=== PATIENT | male | born 1940 | race Caucasian/White ===

== ENCOUNTER → 2018-01-24 13:00 | Outpatient (CLI) | payer MEDICARE, SELFPAY ==
--- NOTE | 2018-01-24 13:02 | ECHOCS_ITS ---
Reason For Study: CAD/ASHD Procedure This was a 2D Doppler, Color Flow transthoracic echocardiogram. The exam was of poor technical quality due to body habitus. The study was technically difficult. Contrast injection was performed. Left Ventricle Normal LV size. Mild concentric left ventricular hypertrophy. Left ventricular systolic function is normal. The estimated ejection fraction is 65 %. There is evidence of diastolic dysfunction. No regional wall motion abnormalities noted. Right Ventricle Normal RV size. Normal systolic function. Atria The left atrium is mildly enlarged. Normal right atrium. No doppler evidence for ASD. Mitral Valve There is no mitral annular calcification. Normal mitral valve. Trivial mitral valve insufficiency. Tricuspid Valve Normal tricuspid valve. Trivial tricuspid valve insufficiency. Right ventricular systolic pressure estimated to be 26 mmHg. Aortic Valve The aortic valve is not well visualized. Trivial aortic valve insufficiency. Pulmonic Valve The pulmonic valve is not well visualized. Great Vessels Normal sized aortic root. Pericardium/Pleural No pericardial effusion. Medication 22 gauge I.V. with prn adaptor inserted into right arm. Diluted definity 2.0ml given slow IV push to enhance endocardial definition. MMode/2D Measurements & Calculations LVIDd: 4.2 cm IVSd: 1.4 cm Ao root diam: 3.0 cm LVIDs: 3.1 cm LVPWd: 1.3 cm LA dimension: 4.3 cm FS: 26.1 % LAV(MOD-bp): 55.5 ml LA A4 area: 20.7 cm2 RA A4 area: 20.0 cm2 LAV(MOD-bp) Indexed: 23.0 ml/m2 LAV(MOD-sp2): 55.0 ml LAV(MOD-sp4): 51.4 ml Doppler Measurements & Calculations MV E max alfonso: 56.1 cm/sec Lat Peak E' Alfonso: 12.0 cm/sec Med Peak E' Alfonso: 7.9 cm/sec MV A max alfonso: 70.6 cm/sec E/E' lat: 4.7 E/E' med: 7.1 MV E/A: 0.79 Ao V2 max: 156.5 cm/sec LV V1 max: 103.5 cm/sec PA V2 max: 90.8 cm/sec Ao max P.8 mmHg LV V1 max P.3 mmHg TR max alfonso: 240.7 cm/sec TR max P.2 mmHg Interpretation Summary The study was technically difficult. Contrast injection was performed. Left ventricular systolic function is normal. The estimated ejection fraction is 65 %. Mild concentric left ventricular hypertrophy. The left atrium is mildly enlarged. Trivial mitral valve insufficiency. Trivial tricuspid valve insufficiency. Trivial aortic valve insufficiency. Right ventricular systolic pressure estimated to be 26 mmHg. There is evidence of diastolic dysfunction. Ordering Physician: Isaac Mcwilliams Referring Physician: Isaac Mcwilliams Performed By: Jennifer Barron RDCS, RVT
== END ==
PROVIDERS: Family Provider Nurse Practitioner; PCP Nurse Practitioner; Visit Provider Internal Medicine Cardiovascular Disease
DX: I47.2 Ventricular tachycardia (principal); I47.1 Supraventricular tachycardia; I25.10 Atherosclerotic heart disease of native coronary artery without angina pectoris; Z95.5 Presence of coronary angioplasty implant and graft; Z95.1 Presence of aortocoronary bypass graft
CPT/HCPCS: 93306; Q9957; A4216; C8929

== ENCOUNTER 2018-10-30 06:51 | Observation (INO) | payer MEDICARE, SELFPAY ==
[2018-10-30] VITALS (11 sets, daily range): BP systolic 124–166; BP diastolic 73–89; PULSE 51–88; RESP 14–19; TEMP 36.3–37.1; O2SAT 93–97; BMI 34.5; BMI 33.0
--- NOTE | 2018-10-30 07:08 | RAD_ITS ---
STUDY: X-RAY CHEST REASON FOR EXAM: Male, 78 years old. Chest pain. TECHNIQUE: Single AP portable view of the chest. COMPARISON: Prior comparison studies are not available for review at this time. FINDINGS: monitoring engineer leads are present. Patient has had a sternotomy. Lungs are expanded. There is mild elevation and eventration of right hemidiaphragm. There is mild interstitial thickening present in both lungs. There is no demonstrated pleural abnormality. There is mild cardiac enlargement. Normal mediastinum and taz. Normal visualized pulmonary arteries. There is atherosclerotic calcification of the aortic arch with tortuosity. There is demineralization of the osseous structures. There are degenerative changes of both shoulders. There is no demonstrated abnormality of the visualized soft tissue structures of the upper abdomen. RAD/Chest 1 View (Portable) IMPRESSION: Cardiomegaly and mild pulmonary congestion. Electronically Signed: Darby Canada MD at 7:48 EST , Service support ,
--- NOTE | 2018-10-30 07:08 | EKG12_ITS ---
Test Reason : CP Blood Pressure : / mmHG Vent. Rate : 061 BPM Atrial Rate : 061 BPM P-R Int : 212 ms QRS Dur : 096 ms QT Int : 424 ms P-R-T Axes : 032 -10 066 degrees QTc Int : 426 ms Sinus rhythm with 1st degree A-V block with Premature supraventricular complexes Minimal voltage criteria for LVH, may be normal variant Nonspecific ST and T wave abnormality Abnormal ECG Confirmed by KEL LUND, YESI ([id number]), technical editor HASMUKH GUAJARDO ([id number]) on 11/01/2018 9:52:57 AM Referred By: KELVIN Confirmed By:YESI BEGUM MD
--- NOTE | 2018-10-30 07:14 | ED.DCSUM_ITS ---
- ER Visit Summary Date of Service: 10/30/18 Chief Complaint: Chest pain History of Present Illness: The patient is a 78 M presenting with chest pain. Patient states he has had intermittent pain over the past week. This has progressively worsened. He states he had an episode where he walked approximately 300 yards and began having chest pain. He needed to sit down. He denies shortness of breath, diaphoresis, nausea. He has a history of coronary disease, diabetes, hypertension. He had a CABG in 2006. He is a previous smoker. Denies PE/DVT risk factors. Physical Examination: Vitals are stable. Patient is afebrile. Alert no acute distress. HEENT exam is unremarkable. Neck is supple. Lungs are clear and equal bilaterally. Heart is regular rate and rhythm. Abdomen is soft nontender nondistended. Extremities are unremarkable. Skin is warm and dry. No focal neurologic deficit. Remainder of exam is unremarkable. Emergency Department Course and Treatment: Patient was given aspirin on arrival. EKG is sinus rate of 61. Chest xray shows cardiomegaly and mild pulmonary congestion. CBC unremarkable. Chemistries show BUN 23, creatinine 1.36. Troponin is negative. On reevaluation, patient is chest pain-free. Will discuss with the hospitalist for observation. Disposition: Observation Impression: Chest pain This note was generated with [employer] dictation software. It may contain incorrect words, spelling, and punctuation that were not noted in review of the chart prior to signing ED Disposition - Plan for ED Patient: Referrals: Palak Cuellar, CAROLYNE-C [Primary Care Provider] -
[2018-10-30] MEDS: Aspirin 81 MG TAB.CHEW 324 MG PO (07:28)
[2018-10-30 07:43] LABS: Absolute Lymphocyte Count 1.42 X10^3/ul (0.83-4.51); Absolute Neutrophil Count 3.2 X10^3/uL (2.0-7.7); Basophil# 0.04 X10^3/uL; Basophil% 0.7 % (0-1); Eosinophil# 0.27 X10^3/uL; Eosinophils% 4.8 % (0-5); Hemoglobin 14.8 g/dl (13.0-16.5); Lymphocyte # 1.42 X10^3/ul (4.0); Mean Corp Hgb Conc 32.9 g/gl (32-36); Mean Corpuscular Hgb 30.3 pg (27.0-32.0); Mean Platelet Vol. 10.8 fl (6.2-12.0); Monocyte# 0.76 X10^3/uL; Monocyte% 13.4 % (0-10); Neutrophil # 3.15 X10^3/uL (2.7-7.7); Neutrophil % 55.6 % (47-70); Platelet Count 202 K/mm3 (150-450); RBC Distribution Width CV 12.8 % (11.6-14.6); RBC Distribution Width SD 42.9 fl (35.1-43.9); Red Blood Count 4.89 M/mm3 (4.6-6.2); White Blood Count 5.7 K/mm3 (4.4-11.0)
[2018-10-30 07:44] LABS: POSITIVE COUNT NO; POSITIVE DIFFERENTIAL NO; POSITIVE MORPHOLOGY NO
[2018-10-30 07:55] LABS: Anion Gap 10 (5-15); BUN 23 mg/dL (7-18); BUN/Creat Ratio 16.9 RATIO (10-20); Chloride 106 mmol/L (98-107); Creatinine, Serum 1.36 mg/dL (0.70-1.30); EST Glomerular Filtration Rate 54 mL/min (>60); Est Glom Filt Rate - Afr Amer 65 mL/min (>60); Estimated Creatinine Clearance 52.89 ml/min; Glucose 90 mg/dL (74-106); Potassium 3.9 mmol/L (3.5-5.1); Sodium Level 142 mmol/L (136-145)
--- NOTE | 2018-10-30 08:11 | NURSING ---
DR VICENTE LIMA
--- NOTE | 2018-10-30 08:13 | HP.PCM_ITS ---
History of Present Illness Date of Admission: 10/30/18 Chief Complaint: chest pain The patient is a 78 year old M with an extensive past medical history as listed which includes CAD status post CABG x5. He was admitted with a complaint of chest pain which started about 3 days ago. Patient states he was up at the [facility] with his as his was been started on Tikosyn for A. fib. While she was there, he walked 2 by something and noticed that he had a feeling of chest discomfort. He rated it about 2 out of 10. He did not think much of it. However this morning, chest pain recurred and was retrosternal, exacerbated by exertion or relieved by rest. It was also rated at about 2 out of 10. He denied any assisted radiation to his left arm, any lightheadedness or dizziness or increased diaphoresis. Patient states he has had a stress test in a very long time and so he decided to come into the ED for assessment. Vitals were stable and initial troponin was negative. He has been admitted to be managed for chest pain to rule out ACS. Past Medical History Past Medical History (Chronic Problems): Chronic Problems (Last Reviewed 01/05/18 @ 14:33 by Laurence Mas) Hypertension (Chronic) Aortocoronary bypass status (Chronic ~06/20/07) CABG x5-DUEÑAS to LAD, bridge diagonal,SVG to lateral CX, SVG to post ventricular branch of the right bridge PDA 1@ [place] 06/20/07 Bilateral carotid artery stenosis (Chronic) Hyperlipidemia (Chronic) Type 2 diabetes mellitus (Chronic) Presence of stent in coronary artery (Chronic) PTCA/stent or prox RCA 04/16/04 @ [facility] Atherosclerotic heart disease of [place] coronary artery without angina pectoris (Chronic) PTCA/stent or prox RCA 04/16/04 @ [facility]; CABG x5-DUEÑAS to LAD, bridge diagonal,SVG to lateral CX, SVG to post ventricular branch of the right bridge PDA 1@ [place] 06/20/07 Medical History: Medical History (Last Reviewed 01/05/18 @ 14:33 by Laurence Mas) Nonsustained ventricular tachycardia (Acute) I47.2 SVT (supraventricular tachycardia) (Acute) I47.1 Hypertension (Chronic) I10 Premature ventricular contraction (Acute) I49.3 Premature atrial contractions (Acute) I49.1 Bilateral carotid artery stenosis (Chronic) I65.23 Hyperlipidemia (Chronic) E78.5 Type 2 diabetes mellitus (Chronic) E11.9 Atherosclerotic heart disease of [place] coronary artery without angina pectoris (Chronic) I25.10 PTCA/stent or prox RCA 04/16/04 @ [facility]; CABG x5-DUEÑAS to LAD, bridge diagonal,SVG to lateral CX, SVG to post ventricular branch of the right bridge PDA 1@ [place] 06/20/07 Bladder cancer C67.9 GERD (gastroesophageal reflux disease) K21.9 Hypothyroidism E03.9 Peripheral vascular disease I73.9 Allergies No Known Allergies Allergy (Verified 07/13/18 14:25) Home Medications: Ambulatory Orders Medication Instructions Recorded Amlodipine [Norvasc] 10 mg PO DAILY 08/06/14 Aspirin E.C. [Ecotrin] 81 mg PO DAILY@0800 08/06/14 DiphenhydrAMINE [Benadryl] 50 mg PO QHS 08/06/14 Fenofibrate [Tricor] 48 mg PO DAILY 08/06/14 Insulin Lispro [Humalog] 0 unit SQ TID 08/06/14 Lovastatin [Mevacor] 80 mg PO QHS 08/06/14 Spironolactone [Aldactone] 25 mg PO DAILY 08/06/14 Valsartan/Hydrochlorothiazide 1 tab PO DAILY 08/06/14 [Diovan Hct 320-25 MG Tablet] levothyroxine 200 mcg tablet 200 mcg PO QDAY 01/05/18 propranolol ER 80 mg capsule,24 80 mg PO QDAY 01/05/18 hr,extended release cholecalciferol (vitamin D3) 2,000 5,000 unit PO DAILY cap 07/13/18 unit capsule insulin degludec (U-100) 100 44 unit SC QHS ml 07/13/18 unit/mL (3 mL) subcutaneous pen potassium 99 mg tablet 99 mg PO DAILY 07/13/18 vitamin B complex tablet 1 tab PO DAILY 07/13/18 Surgical History: Surgical History (Last Updated 07/13/18 @ 14:26 by Lynn Wilcox) Aortocoronary bypass status (Chronic) Onset Date: ~06/20/07 Z95.1 CABG x5-DUEÑAS to LAD, bridge diagonal,SVG to lateral CX, SVG to post ventricular branch of the right bridge PDA 1@ [place] 06/20/07 Presence of stent in coronary artery (Chronic) Z95.5 PTCA/stent or prox RCA 04/16/04 @ [facility] History of nasal surgery Z98.890 History of tonsillectomy Z90.89 Postsurgical percutaneous transluminal coronary angioplasty (PTCA) status Z98.61 PTCA/stent or prox RCA 04/16/04 @ [facility] History of vasectomy Z98.52 Surgical History: coronary bypass surgery, humerus repair; screws present Lives: Spouse/ Significant Other Smoking Status: Former smoker - quit in 1986 Alcohol: None Drugs: None - *Family History Paternal Family History: Family History (Last Updated 07/13/18 @ 14:28 by Lynn Wilcox) Mother Hypertension Heart disease Brother Myocardial infarction, Onset Age: 50 Brother Diabetes Review of Systems Constitutional: Denies: Chills, Fever, Malaise, Weakness, Weight Change, Fatigue Eyes: Denies: Blurred vision HEENT: Denies: Head Aches, Sinus Congestion, Sinus Drainage Cardiovascular: Reports: Chest Pain, Chest Pressure. Denies: Chest Tightness, Edema, Heaviness, Light Headedness, Orthopnea, Palpitations Respiratory: Denies: Cough, Shortness of Breath, Shortness of breath at rest, Shortness of breath upon exertion, Sputum production Gastrointestinal: Denies: Abdominal Pain, Nausea, Vomiting Genitourinary: Denies: Dysuria Musculoskeletal: Denies: Joint Pain, Joint Tenderness Skin: Denies: Rash, Wounds Neurological: Denies: Numbness, Tingling, Focal weakness Psychiatric: Denies: Anxiety, Depression, Homicidal Ideations, Suicidal Ideations Hematologic/ Lymphatic: Denies: Easy Bruising, Easy Bleeding VTE Information - Inpt Only VTE Present on Admission: No VTE Pharm Prophylaxis ordered?: Yes - Physical Exam General: Alert, Oriented x3, Cooperative, No apparent distress HEENT: Atraumatic, PERRLA, EOMI, Normocephalic Oral: Moist Mucosa Neck: Supple, No JVD, Negative Carotid Bruits Lungs: Clear to auscultation, Normal air movement, No rhonchi, No wheeze, No rales Cardiovascular: Regular rate, Regular Rhythm, Normal S1, Normal S2, No murmurs Abdomen: Bowel Sounds Present, Soft, Non Tender, Non-Distended, No Hepato- splenomegaly Extremities: No clubbing, No cyanosis, No edema, Capillary Refill Less than 3 Seconds Skin: No rashes, No breakdown Musculoskeletal: No Tenderness to Palpation of Joints or Extremities Lymphatic: No Cervical, Supraclavicular, or Inguinal Adenopathy Neurological: Cranial nerves II-XII grossly intact, Neuro grossly intact, Motor Exam 5/5 strength throughout Psych/Mental Status: Normal Affect, Appropriate, Alert and oriented to time, place, person, mood and affect Vital Signs Temp Pulse Resp BP Pulse Ox 97.4 F L 58 L 14 149/89 H 95 10/30/18 06:53 10/30/18 07:33 10/30/18 07:33 10/30/18 07:33 10/30/18 07:33 Oxygen Delivery Method Room Air Weight: 268 lb 15.423 oz Body Mass Index (BMI) 34.5 Laboratory Tests Past 24 Hrs 10/30/18 10/30/18 07:30 07:30 WBC 5.7 RBC 4.89 Hgb 14.8 Hct 45.0 MCV 92.0 MCH 30.3 MCHC 32.9 RDW 12.8 RDW Differential 42.9 Plt Count 202 MPV 10.8 Immature Gran % (Auto) 0.500 Neut % (Auto) 55.6 Lymph % (Auto) 25.0 [place] % (Auto) 13.4 H Eos % (Auto) 4.8 Baso % (Auto) 0.7 Absolute Neuts (auto) 3.2 Absolute Lymphs (auto) 1.42 Total Counted Not Reportable Sodium 142 Potassium 3.9 Chloride 106 Carbon Dioxide 26.0 Anion Gap 10 BUN 23 H Creatinine 1.36 H Estim Creat Clear Calc 52.89 Est GFR (MDRD) Af Amer 65 Est GFR (MDRD) Non-Af 54 L BUN/Creatinine Ratio 16.9 Glucose 90 Calcium 9.0 Troponin I < 0.015 Assessment/Plan All Active Problems (Last Reviewed 01/05/18 @ 14:33 by Laurence Mas) Nonsustained ventricular tachycardia (Acute) SVT (supraventricular tachycardia) (Acute) Premature ventricular contraction (Acute) Premature atrial contractions (Acute) 78-year-old male presenting with a complaint of chest pain. 1. Chest pain to rule out ACS * has a history of stents in 2003 and CABG x 5 in 2006 * initial troponin negative; EKG showed no acute ST changes * Admit to PCU with telemetry. * Cycle troponins x3. * Sublingual nitroglycerin as needed. P.o. aspirin 81 mg daily. * for stress test tomorrow * 2. CAD s/p CABG: Aspirin and statin as well as propranolol. 3. Hypertension: On spironolactone, valsartan hydrochlorothiazide and amlodipine. 4. Diabetes mellitus: On insulin degludec 44 units nightly. Insulin sliding scale. Accu-Cheks AC at bedtime. 5. Hypothyroidism: On Synthroid. 6. Hyperlipidemia: On statin and fenofibrate. 7. CKD 3: Cr is 1.36, which is around his baseline. Will monitor DVT prophylaxis: heparin Code Visit OBSV E&M: [id number] Initial observation care L3
--- NOTE | 2018-10-30 10:58 | EKG12_ITS ---
Test Reason : Blood Pressure : / mmHG Vent. Rate : 059 BPM Atrial Rate : 059 BPM P-R Int : 196 ms QRS Dur : 090 ms QT Int : 420 ms P-R-T Axes : 063 -20 048 degrees QTc Int : 415 ms Sinus bradycardia with marked sinus arrhythmia Leftward axis Confirmed by KEL LUND, YESI ([id number]), city editor HASMUKH GUAJARDO ([id number]) on 11/01/2018 10:43:24 AM Referred By: WILDER Confirmed By:YESI BEGUM MD
[2018-10-30 11:31] LABS: Bedside Glucose 153 mg/dL (70-110)
[2018-10-30] MEDS: Insulin Lispro 100 UNIT/ML INSULN.PEN SQ ×2 (12:02→22:02)
[2018-10-30] MEDS: Heparin Injection (Vial) 5,000 UNIT/ML VIAL 5000 UNIT SC ×2 (13:58→21:52)
--- NOTE | 2018-10-30 15:18 | CASEMGMT ---
Patient has a Healthcare POA and Healthcare LW. He is aware they are not on file. Camilla POWERS MSW
[2018-10-30 17:00] LABS: Bedside Glucose 142 mg/dL (70-110)
[2018-10-30] MEDS: DiphenhydrAMINE 25 MG Capsule 50 MG PO (22:02)
[2018-10-30] MEDS: Atorvastatin Calcium 20 MG Tablet PO (22:05)
[2018-10-30 22:25] LABS: Bedside Glucose 182 mg/dL (70-110)
[2018-10-31] VITALS (20 sets, daily range): BP systolic 110–144; BP diastolic 65–84; PULSE 42–102; RESP 16–20; TEMP 36.6–36.9; O2SAT 93–97
[2018-10-31 05:51] LABS: Absolute Lymphocyte Count 1.88 X10^3/ul (0.83-4.51); Absolute Neutrophil Count 2.7 X10^3/uL (2.0-7.7); Basophil# 0.05 X10^3/uL; Basophil% 0.9 % (0-1); Eosinophil# 0.35 X10^3/uL; Eosinophils% 6.1 % (0-5); Hematocrit 41.7 % (40-54); Hemoglobin 13.8 g/dl (13.0-16.5); Lymphocyte # 1.88 X10^3/ul (4.0); Lymphocyte % 32.6 % (19-41); Mean Corp Hgb Conc 33.1 g/gl (32-36); Mean Corpuscular Volume 93.7 fL (80-94); Mean Platelet Vol. 10.9 fl (6.2-12.0); Monocyte# 0.76 X10^3/uL; Monocyte% 13.2 % (0-10); Neutrophil # 2.69 X10^3/uL (2.7-7.7); Neutrophil % 46.5 % (47-70); Platelet Count 176 K/mm3 (150-450); RBC Distribution Width CV 12.6 % (11.6-14.6); RBC Distribution Width SD 42.4 fl (35.1-43.9); Red Blood Count 4.45 M/mm3 (4.6-6.2); White Blood Count 5.8 K/mm3 (4.4-11.0)
[2018-10-31 05:54] LABS: International Normalized Ratio 1.1; Prothrombin Time (Protime)PT. 13.7 SECONDS (11.7-14.9)
[2018-10-31 05:55] LABS: Partial Thromboplast Time 31.6 Seconds (24.1-36.2)
--- NOTE | 2018-10-31 05:55 | EKG12_ITS ---
Test Reason : ADMITTING CP Blood Pressure : / mmHG Vent. Rate : 059 BPM Atrial Rate : 059 BPM P-R Int : 180 ms QRS Dur : 096 ms QT Int : 422 ms P-R-T Axes : 000 -23 037 degrees QTc Int : 417 ms Sinus bradycardia with marked sinus arrhythmia Minimal voltage criteria for LVH, may be normal variant Borderline ECG Confirmed by KEL LUND, YESI ([id number]), editor managing director HASMUKH GUAJARDO ([id number]) on 11/01/2018 10:44:36 AM Referred By: Confirmed By:YESI BEGUM MD
[2018-10-31 06:01] LABS: POSITIVE COUNT NO; POSITIVE DIFFERENTIAL NO; POSITIVE MORPHOLOGY NO
[2018-10-31 06:15] LABS: Anion Gap 9 (5-15); BUN 27 mg/dL (7-18); Calcium,Total 8.4 mg/dL (8.5-10.1); Chloride 108 mmol/L (98-107); Creatinine, Serum 1.35 mg/dL (0.70-1.30); EST Glomerular Filtration Rate 54 mL/min (>60); Est Glom Filt Rate - Afr Amer 66 mL/min (>60); Estimated Creatinine Clearance 53.28 ml/min; Glucose 117 mg/dL (74-106); Sodium Level 140 mmol/L (136-145)
[2018-10-31] MEDS: Levothyroxine 100 MCG Tablet 200 MCG PO (06:39)
[2018-10-31] MEDS: Losartan Potassium 100 MG Tablet PO (06:40)
[2018-10-31] MEDS: Aspirin E.C. 81 MG Tablet PO (06:40)
[2018-10-31 06:50] LABS: Bedside Glucose 110 mg/dL (70-110)
[2018-10-31] MEDS: 0.9% NaCl Peripheral Flush Adult/Peds IV ×2 (07:08→08:15)
[2018-10-31] MEDS: Dextrose 50%-Water 25 GM/50 ML DISP.SYRIN IV (08:14)
[2018-10-31] MEDS: amLODIPine 10 MG Tablet PO (11:44)
[2018-10-31] MEDS: Fenofibrate 48 MG Tablet PO (11:44)
[2018-10-31] MEDS: hydroCHLOROthiazide 25 MG Tablet PO (11:44)
[2018-10-31] MEDS: Spironolactone 25 MG Tablet PO (11:44)
[2018-10-31] MEDS: Insulin Lispro 100 UNIT/ML INSULN.PEN SQ ×2 (11:46→21:57)
[2018-10-31 11:55] LABS: Bedside Glucose 165 mg/dL (70-110)
--- NOTE | 2018-10-31 12:16 | STRESSREP ---
Stress Test Report Date: 10-31-18 Procedure: Pharmacologic stress nuclear imaging study Indications: Chest pain; CAD; PCI; CABG Consent: Per the patient Procedure: The patient underwent pharmacologic (Regadenoson) evaluation with a peak heart rate of 96 beats per minute (67% predicted maximal heart rate) and a peak blood pressure of 130/70 mmHg. The baseline ECG demonstrated sinus bradycardia . The peak pharmacologic ECG demonstrated no obvious ECG changes . There was a rare PVC and during recovery There were no complaints of chest discomfort during pharmacologic infusion or recovery . The examination was discontinued secondary to completion of protocol. Impression: 1. Pharmacologic (Regadenoson) evaluation 2. Peak pharmacologic ECG with no obvious ECG changes . 3. There was a rare PVCs during recovery . 4. Nuclear images pending Myocardial perfusion imaging study: Technique: The patient was injected with 14.7 millicuries of technetium 99m Cardiolite and subsequently rest SPECT Cardiolite nuclear imaging was obtained in the horizontal long, vertical long, and short axis views. The patient underwent pharmacologic (Regadenoson) evaluation with a peak heart rate of 96 beats per minute (67 % percent predicted maximal heart rate) and a peak blood pressure of 130/70 mmHg. The patient was injected with 44.6 millicuries of technetium 99m Cardiolite and subsequently stress SPECT Cardiolite nuclear imaging was obtained in the horizontal long, vertical long, and short axis views. A gated Cardiolite study at peak stress was obtained. Interpretation: Rest and stress SPECT Cardiolite nuclear imaging status post realignment, normalization, and attenuation correction demonstrate At rest the appearance of relative uniform tracer uptake. Status post stress there is an area of diminished tracer uptake in the. stal inferior and lateral segments . The gated Cardiolite study demonstrates myocardial thickening and inward wall motion. The reported LVEF is 61 %. Impression: 1. Rest and stress SPECT Cardiolite nuclear imaging demonstrate myocardial perfusion changes Status post stress appearing compatible with an area of stress induced myocardial ischemia in the distal inferior lateral segments 2. The gated Cardiolite study reports an LVEF of 61%. This note was generated with [employer] software. It may contain incorrect words, spelling, and punctuation that were not noted in checking the note before signing.
--- NOTE | 2018-10-31 12:36 | PCM.PN.HOSP ---
Subjective: Patient seen and examined. He had no complaints at time of review. He did have recurrence of the chest pain overnight and early this morning. During the night, he went into A. fib as well and also has significant bradycardia going down as low as 38. He denied any lightheadedness or dizziness or palpitations. Cardiology consult placed this morning case discussed with gas appliance repairer to Dr. Mcwilliams. He recommended that patient go ahead with stress test and to benefit from further workup as needed after results of stress test. Labs and vitals reviewed. Vitals/I&O's: Vital Signs Temp Pulse Resp BP Pulse Ox 98.0 F 86 16 123/65 H 95 10/31/18 11:38 10/31/18 11:38 10/31/18 11:38 10/31/18 11:38 10/31/18 11:38 Oxygen Delivery Method Room Air Weight: 259 lb 11.272 oz Body Mass Index (BMI) 33.0 Intake and Output for Last 24 Hours 10/29/18 10/30/18 10/31/18 23:59 23:59 23:59 Intake Total 500 / 500 220 / 220 Output Total 975 / 975 1675 / 1675 Balance -475 / -475 -1455 / -1455 General: Alert, Oriented x3, Cooperative, No apparent distress HEENT: Atraumatic, PERRLA, EOMI, Normocephalic Oral: Moist Mucosa Neck: Supple, No JVD, Negative Carotid Bruits Lungs: Clear to auscultation, Normal air movement, No rhonchi, No wheeze, No rales Cardiovascular: Regular rate, Regular Rhythm, Normal S1, Normal S2, No murmurs Abdomen: Bowel Sounds Present, Soft, Non Tender, Non-Distended, No Hepato-splenomegaly Extremities: No clubbing, No cyanosis, No edema, Capillary Refill Less than 3 Seconds Skin: No rashes, No breakdown Musculoskeletal: No Tenderness to Palpation of Joints or Extremities Lymphatic: No Cervical, Supraclavicular, or Inguinal Adenopathy Neurological: Cranial nerves II-XII grossly intact, Neuro grossly intact, Motor Exam 5/5 strength throughout Psych/Mental Status: Normal Affect, Appropriate, Alert and oriented to time, place, person, mood and affect Laboratory Results 10/30/18 13:10: Troponin I < 0.015 10/30/18 16:49: POC Glucose 142 H 10/30/18 21:51: POC Glucose 182 H 10/31/18 05:00: WBC 5.8, RBC 4.45 L, Hgb 13.8, Hct 41.7, MCV 93.7, MCH 31.0, MCHC 33.1, RDW 12.6, RDW Differential 42.4, Plt Count 176, MPV 10.9, Immature Gran % (Auto) 0.700, Neut % (Auto) 46.5 L, Lymph % (Auto) 32.6, [place] % (Auto) 13.2 H, Eos % (Auto) 6.1 H, Baso % (Auto) 0.9, Absolute Neuts (auto) 2.7, Absolute Lymphs (auto) 1.88, Total Counted Not Reportable 10/31/18 05:00: Sodium 140, Potassium 4.0, Chloride 108 H, Carbon Dioxide 23.0, Anion Gap 9, BUN 27 H, Creatinine 1.35 H, Estim Creat Clear Calc 53.28, Est GFR (MDRD) Af Amer 66, Est GFR (MDRD) Non-Af 54 L, BUN/Creatinine Ratio 20.0, Glucose 117 H, Calcium 8.4 L 10/31/18 05:00: PT 13.7, INR 1.1, APTT 31.6 10/31/18 06:43: POC Glucose 110 10/31/18 11:46: POC Glucose 165 H Current Medications Amlodipine Besylate (Norvasc) 10 mg PO DAILY [facility] Last Admin: 10/31/18 11:44 Dose: 10 mg Aspirin (Ecotrin) 81 mg PO DAILY@0800 [facility] Last Admin: 10/31/18 06:40 Dose: 81 mg Atorvastatin Calcium (Lipitor) 20 mg PO QHS [facility] Last Admin: 10/30/18 22:05 Dose: 20 mg Cholecalciferol (Vitamin D) 5,000 unit PO DAILY [facility] Last Admin: 10/31/18 11:44 Dose: 5,000 unit Dextrose (D50w Syringe) 0 gm IV X1 PRN; Protocol PRN Reason: Hypoglycemia Last Admin: 10/31/18 08:14 Dose: 12.5 gm Diphenhydramine HCl (Benadryl) 50 mg PO QHS [facility] Last Admin: 10/30/18 22:02 Dose: 50 mg Fenofibrate (Tricor) 48 mg PO DAILY [facility] Last Admin: 10/31/18 11:44 Dose: 48 mg Glucagon () 1 mg IM .X1 PRN PRN Reason: Hypoglycemia Heparin Sodium (Porcine) (Heparin Na) 5,000 unit SC Q8 [facility] Last Admin: 10/31/18 00:15 Dose: Not Given Hydrochlorothiazide (Hctz) 25 mg PO DAILY [facility] Last Admin: 10/31/18 11:44 Dose: 25 mg Insulin Glargine (Lantus (Bk)) 44 units SC QHS [facility] Last Admin: 10/30/18 22:03 Dose: 44 u Insulin Human Lispro (Humalog Kwikpen ([facility])) 0 unit SQ ACHS [facility]; Protocol Last Admin: 10/31/18 11:46 Dose: 2 u Levothyroxine Sodium (Synthroid) 200 mcg PO DAILY@0600 [facility] Last Admin: 10/31/18 06:39 Dose: 200 mcg Losartan Potassium (Cozaar) 100 mg PO DAILY [facility] Last Admin: 10/31/18 06:40 Dose: 100 mg Magnesium Hydroxide (Milk Of Magnesia) 30 ml PO DAILY PRN PRN PRN Reason: Constipation Nitroglycerin (Nitrostat) 0.4 mg SUBLINGUAL Q5M PRN PRN Reason: CARDIAC/CHEST PAIN Propranolol HCl (Inderal La) 80 mg PO DAILY [facility] Last Admin: 10/31/18 07:38 Dose: Not Given Sodium Chloride () 5 - 15 ml IV UD PRN PRN Reason: SALINE FLUSH Last Admin: 10/31/18 08:15 Dose: 15 ml Spironolactone (Aldactone) 25 mg PO DAILY [facility] Last Admin: 10/31/18 11:44 Dose: 25 mg Medical Necessity - Tobacco Use Smoking Status: Former smoker - quit in 1986 Assessment/Plan All Active Problems (Last Reviewed 01/05/18 @ 14:33 by Laurence Mas) Nonsustained ventricular tachycardia (Acute) SVT (supraventricular tachycardia) (Acute) Premature ventricular contraction (Acute) Premature atrial contractions (Acute) 78-year-old male presenting with a complaint of chest pain. 1. Chest pain to rule out ACS had recurrence of chest pain overnight troponin x 3 were negative. EKG showed no acute ST changes on SL nitroglycerin prn and PO aspirin 81mg daily stress test today showed: area of stress induced myocardial ischemia in the distal inferior lateral segments. cardiology consulted. will await rec's check lipid panel and A1C 2. CAD s/p CABG: Aspirin and statin as well as propranolol. 3. Hypertension: On spironolactone, valsartan hydrochlorothiazide and amlodipine. 4. Diabetes mellitus: On insulin degludec 44 units nightly. Insulin sliding scale. Accu-Cheks AC at bedtime. 5. Hypothyroidism: On Synthroid. 6. Hyperlipidemia: On statin and fenofibrate. 7. CKD 3: Cr is 1.35 today which is around his baseline. Will monitor DVT prophylaxis: heparin Code Visit OBSV E&M: 97804 Subsequent observation care L3
--- NOTE | 2018-10-31 12:40 | CASEMGMT ---
According to the [facility] website, the following are in-network tertiary facilities: [facility], [place], [facility], [place], [facility], [facility], [facility], [place], [facility] [place], and . Jessica SALCIDO CM
--- NOTE | 2018-10-31 12:41 | PN_ITS ---
Subjective: Patient seen and examined. He had no complaints at time of review. He did have recurrence of the chest pain overnight and early this morning. During the night, he went into A. fib as well and also has significant bradycardia going down as low as 38. He denied any lightheadedness or dizziness or palpitations. Cardiology consult placed this morning case discussed with supervisor shed workers to Dr. Mcwilliams. He recommended that patient go ahead with stress test and to benefit from further workup as needed after results of stress test. Labs and vitals reviewed. Vitals/I&O's: Vital Signs Temp Pulse Resp BP Pulse Ox 98.0 F 86 16 123/65 H 95 10/31/18 11:38 10/31/18 11:38 10/31/18 11:38 10/31/18 11:38 10/31/18 11:38 Oxygen Delivery Method Room Air Weight: 259 lb 11.272 oz Body Mass Index (BMI) 33.0 Intake and Output for Last 24 Hours 10/29/18 10/30/18 10/31/18 23:59 23:59 23:59 Intake Total 500 / 500 220 / 220 Output Total 975 / 975 1675 / 1675 Balance -475 / -475 -1455 / -1455 General: Alert, Oriented x3, Cooperative, No apparent distress HEENT: Atraumatic, PERRLA, EOMI, Normocephalic Oral: Moist Mucosa Neck: Supple, No JVD, Negative Carotid Bruits Lungs: Clear to auscultation, Normal air movement, No rhonchi, No wheeze, No rales Cardiovascular: Regular rate, Regular Rhythm, Normal S1, Normal S2, No murmurs Abdomen: Bowel Sounds Present, Soft, Non Tender, Non-Distended, No Hepato- splenomegaly Extremities: No clubbing, No cyanosis, No edema, Capillary Refill Less than 3 Seconds Skin: No rashes, No breakdown Musculoskeletal: No Tenderness to Palpation of Joints or Extremities Lymphatic: No Cervical, Supraclavicular, or Inguinal Adenopathy Neurological: Cranial nerves II-XII grossly intact, Neuro grossly intact, Motor Exam 5/5 strength throughout Psych/Mental Status: Normal Affect, Appropriate, Alert and oriented to time, place, person, mood and affect Laboratory Results 10/30/18 13:10: Troponin I < 0.015 10/30/18 16:49: POC Glucose 142 H 10/30/18 21:51: POC Glucose 182 H 10/31/18 05:00: WBC 5.8, RBC 4.45 L, Hgb 13.8, Hct 41.7, MCV 93.7, MCH 31.0, MCHC 33.1, RDW 12.6, RDW Differential 42.4, Plt Count 176, MPV 10.9, Immature Gran % (Auto) 0.700, Neut % (Auto) 46.5 L, Lymph % (Auto) 32.6, [place] % (Auto) 13.2 H, Eos % (Auto) 6.1 H, Baso % (Auto) 0.9, Absolute Neuts (auto) 2.7, Absolute Lymphs (auto) 1.88, Total Counted Not Reportable 10/31/18 05:00: Sodium 140, Potassium 4.0, Chloride 108 H, Carbon Dioxide 23.0, Anion Gap 9, BUN 27 H, Creatinine 1.35 H, Estim Creat Clear Calc 53.28, Est GFR (MDRD) Af Amer 66, Est GFR (MDRD) Non-Af 54 L, BUN/Creatinine Ratio 20.0, Glucose 117 H, Calcium 8.4 L 10/31/18 05:00: PT 13.7, INR 1.1, APTT 31.6 10/31/18 06:43: POC Glucose 110 10/31/18 11:46: POC Glucose 165 H Current Medications Amlodipine Besylate (Norvasc) 10 mg PO DAILY [facility] Last Admin: 10/31/18 11:44 Dose: 10 mg Aspirin (Ecotrin) 81 mg PO DAILY@0800 [facility] Last Admin: 10/31/18 06:40 Dose: 81 mg Atorvastatin Calcium (Lipitor) 20 mg PO QHS [facility] Last Admin: 10/30/18 22:05 Dose: 20 mg Cholecalciferol (Vitamin D) 5,000 unit PO DAILY [facility] Last Admin: 10/31/18 11:44 Dose: 5,000 unit Dextrose (D50w Syringe) 0 gm IV X1 PRN; Protocol PRN Reason: Hypoglycemia Last Admin: 10/31/18 08:14 Dose: 12.5 gm Diphenhydramine HCl (Benadryl) 50 mg PO QHS [facility] Last Admin: 10/30/18 22:02 Dose: 50 mg Fenofibrate (Tricor) 48 mg PO DAILY [facility] Last Admin: 10/31/18 11:44 Dose: 48 mg Glucagon () 1 mg IM .X1 PRN PRN Reason: Hypoglycemia Heparin Sodium (Porcine) (Heparin Na) 5,000 unit SC Q8 [facility] Last Admin: 10/31/18 00:15 Dose: Not Given Hydrochlorothiazide (Hctz) 25 mg PO DAILY [facility] Last Admin: 10/31/18 11:44 Dose: 25 mg Insulin Glargine (Lantus (Bk)) 44 units SC QHS [facility] Last Admin: 10/30/18 22:03 Dose: 44 u Insulin Human Lispro (Humalog Kwikpen ([facility])) 0 unit SQ ACHS [facility]; Protocol Last Admin: 10/31/18 11:46 Dose: 2 u Levothyroxine Sodium (Synthroid) 200 mcg PO DAILY@0600 [facility] Last Admin: 10/31/18 06:39 Dose: 200 mcg Losartan Potassium (Cozaar) 100 mg PO DAILY [facility] Last Admin: 10/31/18 06:40 Dose: 100 mg Magnesium Hydroxide (Milk Of Magnesia) 30 ml PO DAILY PRN PRN PRN Reason: Constipation Nitroglycerin (Nitrostat) 0.4 mg SUBLINGUAL Q5M PRN PRN Reason: CARDIAC/CHEST PAIN Propranolol HCl (Inderal La) 80 mg PO DAILY [facility] Last Admin: 10/31/18 07:38 Dose: Not Given Sodium Chloride () 5 - 15 ml IV UD PRN PRN Reason: SALINE FLUSH Last Admin: 10/31/18 08:15 Dose: 15 ml Spironolactone (Aldactone) 25 mg PO DAILY [facility] Last Admin: 10/31/18 11:44 Dose: 25 mg Medical Necessity - Tobacco Use Smoking Status: Former smoker - quit in 1986 Assessment/Plan All Active Problems (Last Reviewed 01/05/18 @ 14:33 by Laurence Mas) Nonsustained ventricular tachycardia (Acute) SVT (supraventricular tachycardia) (Acute) Premature ventricular contraction (Acute) Premature atrial contractions (Acute) 78-year-old male presenting with a complaint of chest pain. 1. Chest pain to rule out ACS * had recurrence of chest pain overnight * troponin x 3 were negative. EKG showed no acute ST changes * on SL nitroglycerin prn and PO aspirin 81mg daily * stress test today showed: area of stress induced myocardial ischemia in the distal inferior lateral segments. * cardiology consulted. will await rec's * check lipid panel and A1C * 2. CAD s/p CABG: Aspirin and statin as well as propranolol. 3. Hypertension: On spironolactone, valsartan hydrochlorothiazide and amlodipine. 4. Diabetes mellitus: On insulin degludec 44 units nightly. Insulin sliding scale. Accu-Cheks AC at bedtime. 5. Hypothyroidism: On Synthroid. 6. Hyperlipidemia: On statin and fenofibrate. 7. CKD 3: Cr is 1.35 today which is around his baseline. Will monitor DVT prophylaxis: heparin Code Visit OBSV E&M: 47321 Subsequent observation care L3
--- NOTE | 2018-10-31 14:10 | CASEMGMT ---
This OMARI PERALES to room with MCKENZIE form at this time, explanation done-pt voices understanding, and signed MCKENZIE form at this time. Pt voices no further questions/concerns/needs at this time. Original to chart and copy to pt at this time. SStelsa SALCIDO CM
--- NOTE | 2018-10-31 14:39 | PCM.CONS.C ---
Problem List (1) Chest pain Status: Acute (2) Abnormal stress test Status: Acute (3) CAD S/P percutaneous coronary angioplasty Status: Chronic (4) Aortocoronary bypass status Status: Chronic Comment: CABG x5-DUEÑAS to LAD, bridge diagonal,SVG to lateral CX, SVG to post ventricular branch of the right bridge PDA 1@ [place] 06/20/07 (5) Cardiac dysrhythmia Status: Chronic (6) Hyperlipidemia Status: Chronic Qualifiers: Hyperlipidemia type: unspecified Qualified Code(s): E78.5 - Hyperlipidemia, unspecified (7) Hypertension Status: Chronic Qualifiers: Hypertension type: essential hypertension Qualified Code(s): I10 - Essential (primary) hypertension (8) Type 2 diabetes mellitus Status: Chronic Reason for Consult Date of Consultation: 10/31/18 History of Present Illness: The patient is a 78 year old white male presents for evaluation of chest pain and abnormal pharmacologic stress nuclear imaging study superimposed upon a history of underlying CAD, PCI, CABG, cardiac dysrhythmia, hyperlipidemia, hypertension, and diabetes mellitus. He states that yesterday he was at the [facility] with his . He was having chest discomfort which he described as pressure/tightness sensation from with and on both sides of his chest. He notes it did not radiate down his extremities like it did when he was originally diagnosed. He may have felt somewhat short of breath and dyspneic and felt warm . He did not have nausea, emesis, or diaphoresis. He has not had any orthopnea or PND or peripheral pitting edema. There has been no near syncope or syncope. Based upon his recurrent symptoms he presented to the hospital for further evaluation. Upon further evaluation he was noted to have a negative troponin I level. His ECG has demonstrated sinus rhythm/sinus arrhythmia. He had no acute ECG changes. His chest x-ray on preliminary evaluation demonstrated no acute changes. He underwent a pharmacologic stress nuclear imaging study. Based upon the myocardial perfusion images there were concerns of possible stress-induced myocardial ischemia involving portions of the distal inferolateral segments. He was referred for further cardiovascular evaluation. [] Past Medical History Allergies/Adverse Reactions: Allergies No Known Allergies Allergy (Verified 07/13/18 14:25) Home Medications: Ambulatory Orders Medication Instructions Recorded Amlodipine [Norvasc] 10 mg PO DAILY 08/06/14 Aspirin E.C. [Ecotrin] 81 mg PO DAILY@0800 08/06/14 DiphenhydrAMINE [Benadryl] 50 mg PO QHS 08/06/14 Fenofibrate [Tricor] 48 mg PO DAILY 08/06/14 Insulin Lispro [Humalog] 0 unit SQ TID 08/06/14 Lovastatin [Mevacor] 80 mg PO QHS 08/06/14 Spironolactone [Aldactone] 25 mg PO DAILY 08/06/14 Valsartan/Hydrochlorothiazide 1 tab PO DAILY 08/06/14 [Diovan Hct 320-25 MG Tablet] levothyroxine 200 mcg tablet 200 mcg PO QDAY 01/05/18 propranolol ER 80 mg capsule,24 80 mg PO QDAY 01/05/18 hr,extended release cholecalciferol (vitamin D3) 2,000 5,000 unit PO DAILY cap 07/13/18 unit capsule insulin degludec (U-100) 100 44 unit SC QHS ml 07/13/18 unit/mL (3 mL) subcutaneous pen potassium 99 mg tablet 99 mg PO DAILY 07/13/18 vitamin B complex tablet 1 tab PO DAILY 07/13/18 Past Medical History (Chronic Problems): Chronic Problems (Last Reviewed 01/05/18 @ 14:33 by Laurence Mas) CAD S/P percutaneous coronary angioplasty (Chronic) Cardiac dysrhythmia (Chronic) Hypertension (Chronic) Aortocoronary bypass status (Chronic ~06/20/07) CABG x5-DUEÑAS to LAD, bridge diagonal,SVG to lateral CX, SVG to post ventricular branch of the right bridge PDA 1@ [place] 06/20/07 Bilateral carotid artery stenosis (Chronic) Hyperlipidemia (Chronic) Type 2 diabetes mellitus (Chronic) Presence of stent in coronary artery (Chronic) PTCA/stent or prox RCA 04/16/04 @ [facility] Atherosclerotic heart disease of [place] coronary artery without angina pectoris (Chronic) PTCA/stent or prox RCA 04/16/04 @ [facility]; CABG x5-DUEÑAS to LAD, bridge diagonal,SVG to lateral CX, SVG to post ventricular branch of the right bridge PDA 1@ [place] 06/20/07 Surgical History: coronary bypass surgery, humerus repair; screws present - *Family History Paternal Family History: Family History (Last Updated 07/13/18 @ 14:28 by Lynn Wilcox) Mother Hypertension Heart disease Brother Myocardial infarction, Onset Age: 50 Brother Diabetes Lives: Spouse/ Significant Other Smoking Status: Former smoker Alcohol: None Drugs: None Review of Systems - Review of Systems General: Denies: Fever, Night Sweats, Fatigue Cardiovascular: Reports: Chest Discomfort, Shortness of Breath. Denies: Orthopnea, PND, Peripheral Edema, Palpitations, Lightheadedness, Dizziness, Near Syncope, Syncope Respiratory: Denies: Cough, Sputum Production, Hemoptysis Gastrointestinal: Denies: Hematemesis, Hematochezia, Melena Genitourinary: Denies: Dysuria, Hematuria Subjectve: This is a 78-year-old white male who appears to be resting comfortably at the moment in no acute distress. Objective: Vital Signs Temp Pulse Resp BP Pulse Ox 98.0 F 86 16 123/65 H 95 10/31/18 11:38 10/31/18 11:38 10/31/18 11:38 10/31/18 11:38 10/31/18 11:38 Oxygen Delivery Method Room Air Weight: 259 lb 11.272 oz Body Mass Index (BMI) 33.0 Intake and Output for Last 24 Hours 10/29/18 10/30/18 10/31/18 23:59 23:59 23:59 Intake Total 500 / 500 220 / 220 Output Total 975 / 975 1675 / 1675 Balance -475 / -475 -1455 / -1455 General: Awake, Alert, Oriented x 3, Cooperative, No Acute Distress, Obese HEENT: Atraumatic, Normocephalic, PERRL, EOMI, Sclera Non Icteric Oral: Moist Mucosa Neck: Supple, Good ROM, No JVD Lungs: Clear to auscultation Cardiovascular: Regular Rhythm, Normal S1, Normal S2 Vascular: No Carotid Bruits Abdomen: Bowel Sounds Present, Soft, Non Tender Extremities: No Cyanosis, No Clubbing, No edema Neurological: No Focal Motor or Sensory Deficit Psych/Mental Status: Appropriate 10/31/18 05:00: WBC 5.8, RBC 4.45 L, Hgb 13.8, Hct 41.7, MCV 93.7, MCH 31.0, MCHC 33.1, RDW 12.6, RDW Differential 42.4, Plt Count 176, MPV 10.9, Immature Gran % (Auto) 0.700, Neut % (Auto) 46.5 L, Lymph % (Auto) 32.6, [place] % (Auto) 13.2 H, Eos % (Auto) 6.1 H, Baso % (Auto) 0.9, Absolute Neuts (auto) 2.7, Total Counted Not Reportable 10/31/18 05:00: Sodium 140, Potassium 4.0, Chloride 108 H, Carbon Dioxide 23.0, Anion Gap 9, BUN 27 H, Creatinine 1.35 H, Est GFR (MDRD) Af Amer 66, Est GFR (MDRD) Non-Af 54 L, BUN/Creatinine Ratio 20.0, Glucose 117 H, Calcium 8.4 L 10/31/18 05:00: PT 13.7, INR 1.1, APTT 31.6 Rhythm: Sinus rhythm/sinus arrhythmia EKG: As noted above ECHO: 01/24/2018: Left ventricle considered normal with an LVEF of 65%; mild concentric LVH; mild left atrial enlargement; trivial MR/TR/AI; estimated right ventricular systolic pressure 26 mmHg; decreased diastolic compliance PCI: 04/17/2004: [facility]: PTCA/cutting balloon angioplasty and stenting of the proximal right coronary artery 1 3.5 mm x [address] stent CT Surgery: 06/20/2007: [place], [place]: DUEÑSA to the LAD-bridge diagonal; saphenous vein graft to the LCx; saphenous vein graft sequential to the posterior ventricular branch of the right and bridged to the PDA Holter monitor: 11/12/2014: Sinus rhythm/sinus arrhythmia; PSVCs; PVCs Assessment/Plan 1. Chest pain The patient presents with chest pain. His symptoms are somewhat mixed with concerns of cardiac and potentially noncardiac related issues. He does have underlying cardiovascular disease. He is undergone noninvasive evaluation as described above. This is raise concern about the possibility of underlying progression of CAD/possible graft vessel disease and myocardial ischemia. From a cardiac standpoint he will continue medical management. He was recommended for further evaluation with diagnostic cardiac catheterization. The procedure and risks were discussed with him. He was agreeable to this approach. 2. An abnormal pharmacologic stress nuclear imaging study The patient does have an abnormal pharmacologic stress nuclear imaging study. There is concern this represents underlying progression of CAD and/or graft vessel disease. From a cardiovascular standpoint he will be considered for further evaluation with diagnostic cardiac catheterization. 3. CAD status post PCI status post CABG The patient has undergone revascularization therapy as described above. Again he has symptoms which are somewhat mixed. His noninvasive studies are as described above. He is continue medical therapy. He is being considered for further evaluation with diagnostic cardiac catheterization. 4. Hyperlipidemia The patient will continue lipid-lowering therapy. 5. Hypertension The patient's blood pressure will be monitored. He will continue antihypertensive therapy. 6. Diabetes mellitus The patient will continue under the care of internal medicine. Comment: The above was discussed and reviewed with the patient and Dr. Ortega. He was agreeable to this approach. This note was generated with Orgdot[employer] software. It may contain incorrect words, spelling, and punctuation that were not noted in checking the note before signing.
[2018-10-31] MEDS: TICAGRELOR 90 MG TABLET 180 MG PO (14:40)
[2018-10-31] MEDS: 0.9% Normal Saline 1,000 ML 15 ML IV (14:40)
--- NOTE | 2018-10-31 14:44 | CON.PCM_ITS ---
Problem List (1) Chest pain Status: Acute (2) Abnormal stress test Status: Acute (3) CAD S/P percutaneous coronary angioplasty Status: Chronic (4) Aortocoronary bypass status Status: Chronic Comment: CABG x5-DUEÑAS to LAD, bridge diagonal,SVG to lateral CX, SVG to post ventricular branch of the right bridge PDA 1@ [place] 06/20/07 (5) Cardiac dysrhythmia Status: Chronic (6) Hyperlipidemia Status: Chronic Qualifiers: Hyperlipidemia type: unspecified Qualified Code(s): E78.5 - Hyperlipidemia, unspecified (7) Hypertension Status: Chronic Qualifiers: Hypertension type: essential hypertension Qualified Code(s): I10 - Essential (primary) hypertension (8) Type 2 diabetes mellitus Status: Chronic Reason for Consult Date of Consultation: 10/31/18 History of Present Illness: The patient is a 78 year old white male presents for evaluation of chest pain and abnormal pharmacologic stress nuclear imaging study superimposed upon a history of underlying CAD, PCI, CABG, cardiac dysrhythmia, hyperlipidemia, hypertension, and diabetes mellitus. He states that yesterday he was at the [facility] with his . He was having chest discomfort which he described as pressure/tightness sensation from with and on both sides of his chest. He notes it did not radiate down his extremities like it did when he was originally diagnosed. He may have felt somewhat short of breath and dyspneic and felt warm . He did not have nausea, emesis, or diaphoresis. He has not had any orthopnea or PND or peripheral pitting edema. There has been no near syncope or syncope. Based upon his recurrent symptoms he presented to the hospital for further evaluation. Upon further evaluation he was noted to have a negative troponin I level. His ECG has demonstrated sinus rhythm/sinus arrhythmia. He had no acute ECG changes. His chest x-ray on preliminary evaluation demonstrated no acute changes. He underwent a pharmacologic stress nuclear imaging study. Based upon the myocardial perfusion images there were concerns of possible stress-induced myocardial ischemia involving portions of the distal inferolateral segments. He was referred for further cardiovascular evaluation. [] Past Medical History Allergies/Adverse Reactions: Allergies No Known Allergies Allergy (Verified 07/13/18 14:25) Home Medications: Ambulatory Orders Medication Instructions Recorded Amlodipine [Norvasc] 10 mg PO DAILY 08/06/14 Aspirin E.C. [Ecotrin] 81 mg PO DAILY@0800 08/06/14 DiphenhydrAMINE [Benadryl] 50 mg PO QHS 08/06/14 Fenofibrate [Tricor] 48 mg PO DAILY 08/06/14 Insulin Lispro [Humalog] 0 unit SQ TID 08/06/14 Lovastatin [Mevacor] 80 mg PO QHS 08/06/14 Spironolactone [Aldactone] 25 mg PO DAILY 08/06/14 Valsartan/Hydrochlorothiazide 1 tab PO DAILY 08/06/14 [Diovan Hct 320-25 MG Tablet] levothyroxine 200 mcg tablet 200 mcg PO QDAY 01/05/18 propranolol ER 80 mg capsule,24 80 mg PO QDAY 01/05/18 hr,extended release cholecalciferol (vitamin D3) 2,000 5,000 unit PO DAILY cap 07/13/18 unit capsule insulin degludec (U-100) 100 44 unit SC QHS ml 07/13/18 unit/mL (3 mL) subcutaneous pen potassium 99 mg tablet 99 mg PO DAILY 07/13/18 vitamin B complex tablet 1 tab PO DAILY 07/13/18 Past Medical History (Chronic Problems): Chronic Problems (Last Reviewed 01/05/18 @ 14:33 by Laurence Mas) CAD S/P percutaneous coronary angioplasty (Chronic) Cardiac dysrhythmia (Chronic) Hypertension (Chronic) Aortocoronary bypass status (Chronic ~06/20/07) CABG x5-DUEÑAS to LAD, bridge diagonal,SVG to lateral CX, SVG to post ventricular branch of the right bridge PDA 1@ [place] 06/20/07 Bilateral carotid artery stenosis (Chronic) Hyperlipidemia (Chronic) Type 2 diabetes mellitus (Chronic) Presence of stent in coronary artery (Chronic) PTCA/stent or prox RCA 04/16/04 @ [facility] Atherosclerotic heart disease of [place] coronary artery without angina pectoris (Chronic) PTCA/stent or prox RCA 04/16/04 @ [facility]; CABG x5-DUEÑAS to LAD, bridge diagonal,SVG to lateral CX, SVG to post ventricular branch of the right bridge PDA 1@ [place] 06/20/07 Surgical History: coronary bypass surgery, humerus repair; screws present - *Family History Paternal Family History: Family History (Last Updated 07/13/18 @ 14:28 by Lynn Wilcox) Mother Hypertension Heart disease Brother Myocardial infarction, Onset Age: 50 Brother Diabetes Lives: Spouse/ Significant Other Smoking Status: Former smoker Alcohol: None Drugs: None Review of Systems - Review of Systems General: Denies: Fever, Night Sweats, Fatigue Cardiovascular: Reports: Chest Discomfort, Shortness of Breath. Denies: Orthopnea, PND, Peripheral Edema, Palpitations, Lightheadedness, Dizziness, Near Syncope, Syncope Respiratory: Denies: Cough, Sputum Production, Hemoptysis Gastrointestinal: Denies: Hematemesis, Hematochezia, Melena Genitourinary: Denies: Dysuria, Hematuria Subjectve: This is a 78-year-old white male who appears to be resting comfortably at the moment in no acute distress. Objective: Vital Signs Temp Pulse Resp BP Pulse Ox 98.0 F 86 16 123/65 H 95 10/31/18 11:38 10/31/18 11:38 10/31/18 11:38 10/31/18 11:38 10/31/18 11:38 Oxygen Delivery Method Room Air Weight: 259 lb 11.272 oz Body Mass Index (BMI) 33.0 Intake and Output for Last 24 Hours 10/29/18 10/30/18 10/31/18 23:59 23:59 23:59 Intake Total 500 / 500 220 / 220 Output Total 975 / 975 1675 / 1675 Balance -475 / -475 -1455 / -1455 General: Awake, Alert, Oriented x 3, Cooperative, No Acute Distress, Obese HEENT: Atraumatic, Normocephalic, PERRL, EOMI, Sclera Non Icteric Oral: Moist Mucosa Neck: Supple, Good ROM, No JVD Lungs: Clear to auscultation Cardiovascular: Regular Rhythm, Normal S1, Normal S2 Vascular: No Carotid Bruits Abdomen: Bowel Sounds Present, Soft, Non Tender Extremities: No Cyanosis, No Clubbing, No edema Neurological: No Focal Motor or Sensory Deficit Psych/Mental Status: Appropriate 10/31/18 05:00: WBC 5.8, RBC 4.45 L, Hgb 13.8, Hct 41.7, MCV 93.7, MCH 31.0, MCHC 33.1, RDW 12.6, RDW Differential 42.4, Plt Count 176, MPV 10.9, Immature Gran % (Auto) 0.700, Neut % (Auto) 46.5 L, Lymph % (Auto) 32.6, [place] % (Auto) 13.2 H, Eos % (Auto) 6.1 H, Baso % (Auto) 0.9, Absolute Neuts (auto) 2.7, Total Counted Not Reportable 10/31/18 05:00: Sodium 140, Potassium 4.0, Chloride 108 H, Carbon Dioxide 23.0, Anion Gap 9, BUN 27 H, Creatinine 1.35 H, Est GFR (MDRD) Af Amer 66, Est GFR (MDRD) Non-Af 54 L, BUN/Creatinine Ratio 20.0, Glucose 117 H, Calcium 8.4 L 10/31/18 05:00: PT 13.7, INR 1.1, APTT 31.6 Rhythm: Sinus rhythm/sinus arrhythmia EKG: As noted above ECHO: 01/24/2018: Left ventricle considered normal with an LVEF of 65%; mild concentric LVH; mild left atrial enlargement; trivial MR/TR/AI; estimated right ventricular systolic pressure 26 mmHg; decreased diastolic compliance PCI: 04/17/2004: [facility]: PTCA/cutting balloon angioplasty and stenting of the proximal right coronary artery 1 3.5 mm x [address] stent CT Surgery: 06/20/2007: [place], [place]: DUEÑAS to the LAD-bridge diagonal; saphenous vein graft to the LCx; saphenous vein graft sequential to the posterior ventricular branch of the right and bridged to the PDA Holter monitor: 11/12/2014: Sinus rhythm/sinus arrhythmia; PSVCs; PVCs Assessment/Plan 1. Chest pain The patient presents with chest pain. His symptoms are somewhat mixed with concerns of cardiac and potentially noncardiac related issues. He does have underlying cardiovascular disease. He is undergone noninvasive evaluation as described above. This is raise concern about the possibility of underlying progression of CAD/possible graft vessel disease and myocardial ischemia. From a cardiac standpoint he will continue medical management. He was recommended for further evaluation with diagnostic cardiac catheterization. The procedure and risks were discussed with him. He was agreeable to this approach. 2. An abnormal pharmacologic stress nuclear imaging study The patient does have an abnormal pharmacologic stress nuclear imaging study. There is concern this represents underlying progression of CAD and/or graft vessel disease. From a cardiovascular standpoint he will be considered for further evaluation with diagnostic cardiac catheterization. 3. CAD status post PCI status post CABG The patient has undergone revascularization therapy as described above. Again he has symptoms which are somewhat mixed. His noninvasive studies are as described above. He is continue medical therapy. He is being considered for further evaluation with diagnostic cardiac catheterization. 4. Hyperlipidemia The patient will continue lipid-lowering therapy. 5. Hypertension The patient's blood pressure will be monitored. He will continue antihypertensive therapy. 6. Diabetes mellitus The patient will continue under the care of internal medicine. Comment: The above was discussed and reviewed with the patient and Dr. Ortega. He was agreeable to this approach. This note was generated with [employer] software. It may contain incorrect words, spelling, and punctuation that were not noted in checking the note before signing.
[2018-10-31 14:46] LABS: Bedside Glucose 142 mg/dL (70-110)
[2018-10-31 14:52] LABS: Cholesterol 168 mg/dL (200); High Density Lipoprotein 40 mg/dL; Triglycerides 193 mg/dL; Very Low Density Lipoprotein 39 mg/dL (5-40)
[2018-10-31 15:06] LABS: Hemoglobin A1c 7.5 % (4.2-6.3)
--- NOTE | 2018-10-31 16:42 | CL.D_ITS ---
Patient Name: AMAURI FRANCO V Study Date: 10/31/2018 Performing: Isaac Mcwilliams MD Ht: 74.4 inches 189 cm : 1940 Wt: 260.15 lbs 118 kg Age: 78 Gender: male BSA: 2.44 PROCEDURE(S) PERFORMED [id number]/COR/LV/CABG CLINICAL PROFILE AND INDICATIONS Indications: Suspected CAD, Other Heart Failure: None Stress/Imaging Stress Test w/SPECT MPI: Yes Result: PositiveStress Test with SPECT MPI: Positive Angina Classification Anginal Classification w/in 2 Weeks: CCS III CAD Presentations: Stable angina. CONCLUSIONS Elevated Left Ventricular End Diastolic Pressure (mild) Normal LV size, wall motion,and systolic function LVEF: by LV gram 60 % [place] Multivessel CAD DUEÑAS to DX1 with sequential portion to the LAD: patent to the DX1 with the sequential portion to the LAD occluded SVG to the OM1: patent SVG sequential graft to the RPDA and RPL: patent RECOMMENDATIONS Risk factor modification Medical therapy DESCRIPTION OF PROCEDURE The patient arrived to the procedure lab. The risks and benefits of the procedure as well as a full d escription of our services here and current unavailability of surgical backup were fully explained to the patient and/or their significant other prior to the catheterization. The Timeout was completed, verifying the correct patient and procedure. The patient's procedural site was prepped and draped in the usual fashion. Local anesthetic was given subcutaneously to right groin region with Lidocaine 2%. Using a modified Seldinger technique, arterial access was obtained via the right femoral artery, a 4 Fr sheath was inserted Left Coronary Artery selective angiography was performed in multiple views us ing a 4 Fr. JL5 catheter. Right Coronary Artery selective angiography was then performed in multiple views using a 4 Fr. 3DRC catheter. Saphenous Vein graft to the RCA selective angiography was performe d in multiple views using a 4 Fr. 3DRC catheter. Left internal mammary artery graft to the LAD selective angiography was performed in multiple views using a 4 Fr. JR4 catheter. Left internal m ammary artery graft to the LAD selective angiography was performed in multiple views using a 4 Fr. IM catheter. Saphenous Vein graft to the Circumflex selective angiography was performed in multiple vie ws using a 4 Fr. LCB catheter. Left Coronary Artery selective angiography was performed in multiple v iews using a 4 Fr. JL5 catheter. Left Ventriculography was performed in IRBY projection using a 4 Fr. Pigtail catheter. LV to AO pullback pressures were then recorded.The arterial sheath was pulled and m anual compression applied until hemostasis is achieved. CORONARY ANGIOGRAPHY DOMINANCE: Right Dominant LEFT HEART ASSESSMENT Left Ventricular Ejection Fraction: by LV Gram 60 % Normal LV wall motion Elevated Left Ventricular End Diastolic Pressure LVEDP: 15 mmHg LEFT MAIN: Mild calcification, Distal: Eccentric: 10-25 % Stenosis LEFT ANTERIOR DECENDING ARTERY: PROX LAD: Severe calcification, Eccentric: 50 % Stenosis DIAGONAL 1: Proximal - Filling from the DUEÑAS graft with no angiographically significant appearing dis ease distal to the graft anastomosis CIRCUMFLEX ARTERY: PROX CIRC: Severe calcification, Eccentric: 90 % Stenosis OM 1: Proximal - is subtotally occluded with the remainder of the vessel filling from the SVG graft w ith no angiograhically significant appearing disease distal the anastomosis RIGHT CORONARY ARTERY: Severe calcification MID RCA: is occluded RT PLV: Filling from the Sequential SVG graft to the RPDA and with no angiographically significant ap pearing disease distal to the graft anastomosis RT PDA: Proximal - Filling from the SVG graft with no angiographically significant appearing disease distal to the graft anastomosis GRAFTS: Right Posterior Lateral Vessel: Filling from the Sequential SVG graft to the RPDA and with no angiog raphically significant appearing disease distal to the graft anastomosis DUEÑAS graft to the 1st Diagonal is patent with the sequential portion to the LAD occluded Saphenous Vein graft to the 1st OM is patent Saphenous Vein graft to the RPDA is patent with the sequential portion to the RPL patent VALVE FINDINGS: Normal Aortic Valve function Normal Mitral Valve function AORTIC ROOT: Angiographically normal COMPLICATIONS No Complications PROCEDURE MEDICATIONS Versed 1 mg IV Oxygen: 2 L/min via nasal cannula SUMMARY OF HEMODYNAMIC DATA Time AIR REST ECG 14:51:54 AO 118/91 (104) SA 15:11:38 LV 132/6, 18 15:55:50 LV 130/7, 15 15:55:56 LV 144/6, 19 15:57:02 LVp 152/1, 20 15:57:08 AOp 150/84 (113) 15:57:13 Signed By Isaac Mcwilliams MD On 10/31/2018 16:41:51 Isaac Mcwilliams MD
[2018-10-31] MEDS: 0.9% Normal Saline 1,000 ML 75 ML IV (16:45)
[2018-10-31 17:36] LABS: Bedside Glucose 102 mg/dL (70-110)
[2018-10-31] MEDS: DiphenhydrAMINE 25 MG Capsule 50 MG PO (21:57)
[2018-10-31] MEDS: Atorvastatin Calcium 20 MG Tablet PO (21:58)
[2018-10-31 22:26] LABS: Bedside Glucose 274 mg/dL (70-110)
[2018-11-01 03:11] VITALS: PULSE 90
[2018-11-01 03:50] VITALS: BP 134/63; PULSE 92; RESP 18; TEMP 36.8; O2SAT 96
[2018-11-01 06:08] LABS: Anion Gap 12 (5-15); BUN 28 mg/dL (7-18); BUN/Creat Ratio 20.7 RATIO (10-20); Chloride 109 mmol/L (98-107); Creatinine, Serum 1.35 mg/dL (0.70-1.30); EST Glomerular Filtration Rate 54 mL/min (>60); Est Glom Filt Rate - Afr Amer 66 mL/min (>60); Estimated Creatinine Clearance 53.28 ml/min; Glucose 142 mg/dL (74-106); Potassium 4.4 mmol/L (3.5-5.1); Sodium Level 142 mmol/L (136-145)
[2018-11-01 06:13] LABS: Hematocrit 45.3 % (40-54); Hemoglobin 15.3 g/dl (13.0-16.5)
[2018-11-01] MEDS: Levothyroxine 100 MCG Tablet 200 MCG PO (06:51)
[2018-11-01 07:03] VITALS: PULSE 76
[2018-11-01 07:06] LABS: Bedside Glucose 161 mg/dL (70-110)
[2018-11-01 07:52] VITALS: BP 99/66; PULSE 102; RESP 16; TEMP 36.8; O2SAT 97
[2018-11-01] MEDS: Aspirin E.C. 81 MG Tablet PO (08:02)
[2018-11-01] MEDS: Insulin Lispro 100 UNIT/ML INSULN.PEN SQ (08:02)
[2018-11-01 09:46] VITALS: BP 137/77; PULSE 102; RESP 16; TEMP 36.6; O2SAT 96
[2018-11-01] MEDS: Losartan Potassium 100 MG Tablet PO (09:51)
[2018-11-01] MEDS: amLODIPine 10 MG Tablet PO (09:51)
[2018-11-01] MEDS: Fenofibrate 48 MG Tablet PO (09:54)
[2018-11-01] MEDS: Spironolactone 25 MG Tablet PO (09:54)
[2018-11-01] MEDS: hydroCHLOROthiazide 25 MG Tablet PO (09:54)
--- NOTE | 2018-11-01 10:19 | DCINST_ITS ---
- Discharge Diagnoses Current Active Problems: Current Active and Chronic Problems (Last Reviewed 01/05/18 @ 14:33 by Laurence Mas) Chest pain (Acute) Abnormal stress test (Acute) CAD S/P percutaneous coronary angioplasty (Chronic) Cardiac dysrhythmia (Chronic) You will use the following diet at home:: Cardiac Your food should be the consistency of: Regular Your liquids should be the consistency of: Regular/Thin Discharge Activity: Return to Normal Activity Weight Bearing Status: Weight bearing as tolerated Call your doctor if you observe: Shortness of breath, Dizziness, Fainting spe lls, Swelling in the ankles, Chest pain Instructions: Discharge Instructions for Angina, Recognizing a Heart Attack or Angina Additional Instructions: to follow up with Dr Mcwilliams for a Holter Monitor placement in 2 weeks Allergies/Adverse Reactions: Allergies No Known Allergies Allergy (Verified 07/13/18 14:25) Medications to take at Discharge Amlodipine [Norvasc] 10 mg PO DAILY 08/06/14 Aspirin E.C. [Ecotrin] 81 mg PO DAILY@0800 08/06/14 DiphenhydrAMINE [Benadryl] 50 mg PO QHS 08/06/14 Fenofibrate [Tricor] 48 mg PO DAILY 08/06/14 Insulin Lispro [Humalog] 0 unit SQ TID 08/06/14 Lovastatin [Mevacor] 80 mg PO QHS 08/06/14 Spironolactone [Aldactone] 25 mg PO DAILY 08/06/14 Valsartan/Hydrochlorothiazide [Diovan Hct 320-25 MG Tablet] 1 tab PO DAILY 08/06/14 levothyroxine 200 mcg tablet 200 mcg PO QDAY 01/05/18 cholecalciferol (vitamin D3) 2,000 unit capsule 5,000 unit PO DAILY cap 07/13/18 insulin degludec (U-100) 100 unit/mL (3 mL) subcutaneous pen 44 unit SC QHS ml 07/13/18 potassium 99 mg tablet 99 mg PO DAILY 07/13/18 vitamin B complex tablet 1 tab PO DAILY 07/13/18 Isosorbide Mononitrate [Imdur] 30 mg PO DAILY #30 tablet 11/01/18 Propranolol HCl [Inderal LA (Beta Cirilo)] 40 mg PO DAILY #30 capsule 11/01/18 The following prescriptions were given: Isosorbide Mononitrate [Imdur] 30 mg PO DAILY #30 tablet Propranolol HCl [Inderal LA (Beta Cirilo)] 40 mg PO DAILY #30 capsule Primary Care Physician: Palak Cuellar NP-C [Primary Care Provider] - Please follow up with your Primary Care Physician in: one week Test Results: Test results from this visit will be discussed in further detail at your follow- up appointment, if applicable. Please Follow Up With: Isaac Mcwilliams MD When: 1-2 weeks Proposed Discharge Date: 11/01/18
--- NOTE | 2018-11-01 10:19 | DS.PCM_ITS ---
Discharge Date and Diagnosis Date of Admission: 10/30/18 Date of Discharge: 11/01/18 - Primary Discharge Diagnosis Active and Suspected Problems (Last Reviewed 01/05/18 @ 14:33 by Laurence Mas) Chest pain (Acute) Abnormal stress test (Acute) - Secondary Discharge Diagnosis Chronic Problems (Last Reviewed 01/05/18 @ 14:33 by Laurence Mas) CAD S/P percutaneous coronary angioplasty (Chronic) Cardiac dysrhythmia (Chronic) Hypertension (Chronic) Aortocoronary bypass status (Chronic ~06/20/07) CABG x5-DUEÑAS to LAD, bridge diagonal,SVG to lateral CX, SVG to post ventricular branch of the right bridge PDA 1@ [place] 06/20/07 Bilateral carotid artery stenosis (Chronic) Hyperlipidemia (Chronic) Type 2 diabetes mellitus (Chronic) Presence of stent in coronary artery (Chronic) PTCA/stent or prox RCA 04/16/04 @ [facility] Atherosclerotic heart disease of [place] coronary artery without angina pectoris (Chronic) PTCA/stent or prox RCA 04/16/04 @ [facility]; CABG x5-DUEÑAS to LAD, bridge diagonal,SVG to lateral CX, SVG to post ventricular branch of the right bridge PDA 1@ [place] 06/20/07 Hospital Course and Treatment Imaging Results: Diagnostic Data Chest X-Ray 10/30/18 07:08 IMPRESSION: Cardiomegaly and mild pulmonary congestion. Electronically Signed: Darby Canada MD at 7:48 EST , Service support , cardiology- Dr Mcwilliams Operations: None Procedures: Cardiac catheterization, Nuclear stress test Summary of Care Provided: The patient is a 78 year old M with an extensive past medical history as listed which includes CAD status post CABG x5. He was admitted with a complaint of chest pain which started about 3 days ago. Patient states he was up at the [facility] with his as his was been started on Tikosyn for A. fib. While she was there, he walked 2 by something and noticed that he had a feeling of chest discomfort. He rated it about 2 out of 10. He did not think much of it. However this morning, chest pain recurred and was retrosternal, exacerbated by exertion or relieved by rest. It was also rated at about 2 out of 10. He denied any assisted radiation to his left arm, any lightheadedness or dizziness or increased diaphoresis. Patient states he has had a stress test in a very long time and so he decided to come into the ED for assessment. Vitals were stable and initial troponin was negative. He was admitted to be managed for chest pain to rule out ACS. He had a stress test which was positive for an area of stress induced myocardial ischemia in the distal inferior lateral segments, with an EF of 61%. He had a cardiac catheterisation which showed normal left ventricular size, wall motion and systolic function with an EF of 60%, [place] multivessel CAD and patent graft to the RPDA and RPL and obtuse marginal artery. Recommendations by cardiology were for risk factor modification and medical therapy. Of note, patient also developed significant bradycardia with heart rate going as low as 38. His propranolol was held. On discharge, propranolol was decreased to 60 mg daily from 80 mg daily. He was also put on Imdur 30 mg daily. He is to follow-up with his primary care doctor and with cardiology. Per cardiology, he will need to be fitted with a Holter monitor in about 2 weeks. Patient seen and examined prior to discharge. He had no complaints and felt well. Review of systems was otherwise negative. Labs and vitals reviewed. Home medications reviewed and reconciled. o/e: Vital Signs Height 6 ft 2.4 in Weight: 259 lb 11.272 oz Weight in Pounds 259.7 lbs Pulse Ox 96 Temperature 98 F Pulse Rate 102 Respiratory Rate 16 Blood Pressure 137/77 Blood Pressure Position Semi-Fowlers [] General: Alert, Oriented x3, Cooperative, No apparent distress HEENT: Atraumatic, PERRLA, EOMI, Normocephalic Oral: Moist Mucosa Neck: Supple, No JVD, Negative Carotid Bruits Lungs: Clear to auscultation, Normal air movement, No rhonchi, No wheeze, No rales Cardiovascular: Regular rate, Regular Rhythm, Normal S1, Normal S2, No murmurs Abdomen: Bowel Sounds Present, Soft, Non Tender, Non-Distended, No Hepato- splenomegaly Extremities: No clubbing, No cyanosis, No edema, Capillary Refill Less than 3 Seconds Skin: No rashes, No breakdown Musculoskeletal: No Tenderness to Palpation of Joints or Extremities, right groin dressing is clean Lymphatic: No Cervical, Supraclavicular, or Inguinal Adenopathy Neurological: Cranial nerves II-XII grossly intact, Neuro grossly intact, Motor Exam 5/5 strength throughout Psych/Mental Status: Normal Affect, Appropriate, Alert and oriented to time, place, person, mood and affect Plan as described above. - Physical Exam Vital Signs Temp Pulse Resp BP Pulse Ox 98 F 102 H 16 137/77 H 96 11/01/18 09:46 11/01/18 09:46 11/01/18 09:46 11/01/18 09:46 11/01/18 09:46 Oxygen Flow Rate (L/min) 2 Oxygen Delivery Method Room Air Weight: 259 lb 11.272 oz Body Mass Index (BMI) 33.0 Intake and Output for Last 24 Hours 10/30/18 10/31/18 11/01/18 23:59 23:59 23:59 Intake Total 500 / 500 460 / 460 588 / 588 Output Total 975 / 975 2675 / 2675 900 / 900 Balance -475 / -475 -2215 / -2215 -312 / -312 Laboratory Tests Past 24 Hrs 10/31/18 10/31/18 11/01/18 14:20 14:20 05:24 Hgb 15.3 Hct 45.3 Sodium Potassium Chloride Carbon Dioxide Anion Gap BUN Creatinine Estim Creat Clear Calc Est GFR (MDRD) Af Amer Est GFR (MDRD) Non-Af BUN/Creatinine Ratio Glucose Hemoglobin A1c 7.5 H Calcium Triglycerides 193 Cholesterol 168 LDL Cholesterol 89 VLDL Cholesterol 39 HDL Cholesterol 40 11/01/18 05:24 Hgb Hct Sodium 142 Potassium 4.4 Chloride 109 H Carbon Dioxide 21.0 Anion Gap 12 BUN 28 H Creatinine 1.35 H Estim Creat Clear Calc 53.28 Est GFR (MDRD) Af Amer 66 Est GFR (MDRD) Non-Af 54 L BUN/Creatinine Ratio 20.7 H Glucose 142 H Hemoglobin A1c Calcium 9.0 Triglycerides Cholesterol LDL Cholesterol VLDL Cholesterol HDL Cholesterol POC Glucose 11/01/18 10/31/18 10/31/18 06:55 21:55 17:18 POC Glucose 161 H 274 H 102 10/31/18 10/31/18 14:37 11:46 POC Glucose 142 H 165 H Discharge Activity: Return to Normal Activity Weight Bearing Status: Weight bearing as tolerated Call your doctor if you observe: Shortness of breath, Dizziness, Fainting spells, Swelling in the ankles, Chest pain Home Medications: Medications to take at Discharge Amlodipine [Norvasc] 10 mg PO DAILY 08/06/14 Aspirin E.C. [Ecotrin] 81 mg PO DAILY@0800 08/06/14 DiphenhydrAMINE [Benadryl] 50 mg PO QHS 08/06/14 Fenofibrate [Tricor] 48 mg PO DAILY 08/06/14 Insulin Lispro [Humalog] 0 unit SQ TID 08/06/14 Lovastatin [Mevacor] 80 mg PO QHS 08/06/14 Spironolactone [Aldactone] 25 mg PO DAILY 08/06/14 Valsartan/Hydrochlorothiazide [Diovan Hct 320-25 MG Tablet] 1 tab PO DAILY 08/06/14 levothyroxine 200 mcg tablet 200 mcg PO QDAY 01/05/18 cholecalciferol (vitamin D3) 2,000 unit capsule 5,000 unit PO DAILY cap 07/13/18 insulin degludec (U-100) 100 unit/mL (3 mL) subcutaneous pen 44 unit SC QHS ml 07/13/18 potassium 99 mg tablet 99 mg PO DAILY 07/13/18 vitamin B complex tablet 1 tab PO DAILY 07/13/18 Isosorbide Mononitrate [Imdur] 30 mg PO DAILY #30 tablet 11/01/18 Propranolol HCl [Inderal LA (Beta Cirilo)] 60 mg PO DAILY #30 capsule 11/01/18 Following Prescrptions Were Given to Patient: Isosorbide Mononitrate [Imdur] 30 mg PO DAILY #30 tablet Propranolol HCl [Inderal LA (Beta Cirilo)] 60 mg PO DAILY #30 capsule Primary Care Physician: Palak Cuellar NP-C [Primary Care Provider] - Please follow up with your Primary Care Physician in: one week Please Follow Up With: Isaac Mcwilliams MD When: 1-2 weeks Patient Instructions: Recognizing a Heart Attack or Angina, Discharge Instructions for Angina Medical Necessity - Tobacco Use Smoking Status: Former smoker Meaningful Use Info Meaningful Use Diagnoses (Choose all that apply): None applicable Code Visit Inpatient E&M: 66946 Disch Hosp
[2018-11-01] MEDS: Isosorbide Mononitrate 30 MG Tablet PO (10:23)
--- NOTE | 2018-11-01 10:44 | PCM.PN.CARD ---
Subjectve: Patient states he feels better today. He denies ongoing chest discomfort or difficulty breathing. He has not been aware of changes in his cardiac rate or rhythm. There is been no near syncope or syncope. Objective: Vital Signs Temp Pulse Resp BP Pulse Ox 98 F 102 H 16 137/77 H 96 11/01/18 09:46 11/01/18 09:46 11/01/18 09:46 11/01/18 09:46 11/01/18 09:46 Oxygen Flow Rate (L/min) 2 Oxygen Delivery Method Room Air Weight: 259 lb 11.272 oz Body Mass Index (BMI) 33.0 Intake and Output for Last 24 Hours 10/30/18 10/31/18 11/01/18 23:59 23:59 23:59 Intake Total 500 / 500 460 / 460 588 / 588 Output Total 975 / 975 2675 / 2675 900 / 900 Balance -475 / -475 -2215 / -2215 -312 / -312 General: Awake, Alert, Oriented x 3, Cooperative, No Acute Distress HEENT: Atraumatic, Normocephalic, PERRL, EOMI, Sclera Non Icteric Oral: Moist Mucosa Neck: Supple, Good ROM, No JVD Lungs: Clear to auscultation Cardiovascular: Regular Rhythm, Normal S1, Normal S2 Vascular: Normal Femoral Pulses Abdomen: Bowel Sounds Present, Soft, Non Tender Extremities: No edema Psych/Mental Status: Appropriate 10/31/18 14:20: Triglycerides 193, Cholesterol 168, LDL Cholesterol 89, VLDL Cholesterol 39, HDL Cholesterol 40 10/31/18 14:20: Hemoglobin A1c 7.5 H 11/01/18 05:24: Hgb 15.3, Hct 45.3 11/01/18 05:24: Sodium 142, Potassium 4.4, Chloride 109 H, Carbon Dioxide 21.0, Anion Gap 12, BUN 28 H, Creatinine 1.35 H, Est GFR (MDRD) Af Amer 66, Est GFR (MDRD) Non-Af 54 L, BUN/Creatinine Ratio 20.7 H, Glucose 142 H, Calcium 9.0 Rhythm: Sinus rhythm/sinus arrhythmia with sinus bradycardia/tachycardia Medical Necessity - Tobacco Use Smoking Status: Former smoker Assessment/Plan 1. Chest pain The patient presents with chest pain. His symptoms are somewhat mixed with concerns of cardiac and potentially noncardiac related issues. He does have underlying CAD. He is undergone evaluation with diagnostic cardiac catheterization. He is being treated medically. He did not require any percutaneous intervention. He should also be considered for non-cardiac evaluation of his chest discomfort. 2. CAD status post PCI status post CABG Again the patient appears to be symptomatically able at this time. He is going to continue medical management. 3. Hyperlipidemia The patient will continue lipid-lowering therapy. 6. Hypertension The patient's blood pressure will be monitored. He will continue antihypertensive therapy. 7. Diabetes mellitus The patient will continue under the care of internal medicine. 8. Cardiac dysrhythmia The patient does have sinus rhythm with sinus arrhythmia with episodes of sinus bradycardia and sinus tachycardia. He has had this documented in the past. Present time, status post review of his case, was recommended that, based upon his episodes of sinus bradycardia, that his beta-nick dose be reduced to propranolol LA 60 mg a day. He will have a future outpatient Holter monitor follow-up to reassess his average rate and rhythm. Depending upon his findings he may, at some point time the future, need a combination of medical management and permanent pacemaker support. Comment: The above was discussed and reviewed with the patient and Dr. Ortega. This note was generated with [facility] dictation software. It may contain incorrect words, spelling, and punctuation that were not noted in checking the note before signing.
== END 2018-11-01 10:18 | disposition home or self-care (01) ==
LOC: ED 08:22 → PCU 08:32
PROVIDERS: Internal Medicine Cardiovascular Disease; Admitting Provider Student in an Organized Health Care Education/Training Program; Emergency Provider Emergency Medicine; Family Provider Nurse Practitioner; PCP Nurse Practitioner; Visit Provider Student in an Organized Health Care Education/Training Program
DX: R07.89 Other chest pain (principal); I25.10 Atherosclerotic heart disease of native coronary artery without angina pectoris; E78.5 Hyperlipidemia, unspecified; K21.9 Gastro-esophageal reflux disease without esophagitis; E03.9 Hypothyroidism, unspecified; E11.51 Type 2 diabetes mellitus with diabetic peripheral angiopathy without gangrene; E11.22 Type 2 diabetes mellitus with diabetic chronic kidney disease; N18.3 Chronic kidney disease, stage 3 (moderate); I12.9 Hypertensive chronic kidney disease with stage 1 through stage 4 chronic kidney disease, or unspecified chronic kidney disease; Z79.899 Other long term (current) drug therapy; Z95.1 Presence of aortocoronary bypass graft; Z87.891 Personal history of nicotine dependence; Z79.82 Long term (current) use of aspirin; Z79.4 Long term (current) use of insulin; R94.39 Abnormal result of other cardiovascular function study; R00.1 Bradycardia, unspecified
CPT/HCPCS: 36415; 71045; 78452; 80048; 80061; 82962; 83036; 84484; 85014; 85018; 85025; 85610; 85730; 93005; 93017; 93459; 96361; 96372; 96374; 97802; 99152; 99153; 99218; 99283; A9500; J7030; J7040; Q9967; A4216; C1769; C1894; G0378; J2785

== ENCOUNTER 2019-08-20 10:51 | Inpatient (IN) | payer MEDICARE, SELFPAY ==
[2019-01-17 14:44] VITALS: BMI 34.2
[2019-08-20] VITALS (16 sets, daily range): BP systolic 96–123; BP diastolic 51–71; PULSE 65–108; RESP 16–24; TEMP 36.3–37; O2SAT 84–95; BMI 34.0
--- NOTE | 2019-08-20 11:15 | RAD_ITS ---
STUDY: X-RAY CHEST REASON FOR EXAM: Male, 79 years old. Shortness of breath. TECHNIQUE: Single AP portable view of the chest. COMPARISON: Comparison is made with prior study dated October 30, 2018. FINDINGS: EKG electrodes are seen. There is evidence of atelectasis at the right lung base with thickening of the right minor fissure. Sternal cerclage wires and vascular clips are present from a prior sternotomy and coronary artery bypass graft procedure (CABG). Normal mediastinum and taz. Normal visualized pulmonary arteries. There is atherosclerotic calcification of the aortic arch with tortuosity. There are diffuse degenerative changes of the visualized thoracic spine. Normal visualized ribs, clavicles, and shoulders. There is no demonstrated abnormality of the visualized soft tissue structures of the upper abdomen. RAD/Chest 1 View (Portable) IMPRESSION: Pleural parenchymal changes at the right lung base. Follow-up is recommended. Electronically Signed: Guillermo Shirley, at 11:40 EST , Service support ,
--- NOTE | 2019-08-20 11:15 | EKG12_ITS ---
Test Reason : SOB Blood Pressure : / mmHG Vent. Rate : 098 BPM Atrial Rate : 097 BPM P-R Int : 000 ms QRS Dur : 090 ms QT Int : 346 ms P-R-T Axes : 000 -18 044 degrees QTc Int : 441 ms SInus vs Ectopic Atrial Rhythm Poor R-Wave Progression Minimal voltage criteria for LVH, may be normal variant Abnormal ECG Confirmed by KEL LUND, YESI ([id number]), desk editor GLO PALACIOS ([id number]) on 08/22/2019 11:57:06 AM Referred By: ANA Confirmed By:YESI BEGUM MD
[2019-08-20 11:31] LABS: Absolute Lymphocyte Count 1.03 X10^3/uL (0.83-4.51); Absolute Neutrophil Count 10.6 X10^3/uL (2.0-7.7); Basophil# 0.06 X10^3/uL; Basophil% 0.4 % (0-1); Eosinophils% 1.4 % (0-5); Hematocrit 36.3 % (40-54); Hemoglobin 12.3 g/dL (13.0-16.5); Lymphocyte # 1.03 X10^3/ul (4.0); Lymphocyte % 7.2 % (19-41); Mean Corp Hgb Conc 33.9 g/dL (32-36); Mean Corpuscular Volume 91.4 fL (80-94); Mean Platelet Vol. 9.9 fl (6.2-12.0); Monocyte# 2.07 X10^3/uL; Monocyte% 14.6 % (0-10); NRBC Flagged by Analyzer 0 % (0-5); Neutrophil % 74.6 % (47-70); POSITIVE DIFFERENTIAL YES; Platelet Count 437 K/mm3 (150-450); RBC Distribution Width CV 12.5 % (11.6-14.6); RBC Distribution Width SD 41.6 fl (35.1-43.9); Red Blood Count 3.97 M/mm3 (4.6-6.2); White Blood Count 14.2 K/mm3 (4.4-11.0)
[2019-08-20 11:32] LABS: Differential Indicated SCAN CRITERIA MET
[2019-08-20] MEDS: Ipratropium/Albuterol Sulfate 3 ML AMPUL.NEB INHALATION ×3 (11:33→19:22)
[2019-08-20 11:53] LABS: Anion Gap 7 (5-15); BUN 79 mg/dL (7-18); BUN/Creat Ratio 35.3 RATIO (10-20); Calcium,Total 8.5 mg/dL (8.5-10.1); Chloride 98 mmol/L (98-107); Creatinine, Serum 2.24 mg/dL (0.70-1.30); EST Glomerular Filtration Rate 30 mL/min (>60); Est Glom Filt Rate - Afr Amer 37 mL/min (>60); Glucose 189 mg/dL (74-106); Potassium 4.5 mmol/L (3.5-5.1); Sodium Level 131 mmol/L (136-145)
--- NOTE | 2019-08-20 11:55 | ED.VIS.DYS ---
History of Present Illness Chief Complaint: Shortness of Breath Informant: Patient Onset: Days Timing: Continuous Quality: Dyspnea on exertion, Orthopnea, Wheezing Worsened by: Coughing, Lying flat Relieved by: Nothing Associated Symptoms: Bloody Sputum, Cough Chest Pain: None Narrative: Patient is a 79-year-old male with history of coronary artery disease, atrial fibrillation, long-term anticoagulation (on Eliquis) presenting with worsening shortness of breath. Patient states his been feeling worse over the past week. He has associated cough. He states his cough is been intermittently productive at one time had he had great jelly colored sputum. He has been drinking a lot of NyQuil/ZzzQuil for his symptoms. Patient is also been using albuterol nebulizer at home with no significant relief of his symptoms. He reports decreased appetite because of his symptoms. He denies any fever. He is now having a hard time laying down at night. He states he is having to sleep in a recliner. He notes when he lays flat he coughs. He denies any swelling of his legs. He denies any black or bloody stools. He denies any cystic abdominal pain or urinary symptoms. He denies any other complaints at this time. Past Medical History - Allergies and Home Meds Allergies/Adverse Reactions: Allergies No Known Allergies Allergy (Verified 01/17/19 14:48) Past Medical History: - - Hypothyroid, hypertension, atrial fibrillation, coronary artery disease, hyperlipidemia, diabetes mellitus type 2, GERD, SVT Surgical History: coronary bypass surgery, humerus repair; screws present Smoking Status: Former smoker - Family History Maternal Family History: Family History (Last Updated 01/17/19 @ 14:55 by Lynn Wilcox) Mother Hypertension Heart disease Brother Myocardial infarction, Onset Age: 50 Brother Diabetes Review of Systems General: Reports: Malaise. Denies: Chills, Fever, Sweats Eyes: Denies: Visual changes - bilaterally, Diplopia ENT: Denies: Rhinorrhea, Sore throat Cardiovascular: Denies: Chest pain, Palpitations Respiratory: Reports: Dyspnea, Cough, Sputum, Dyspnea on exertion, Orthopnea Gastrointestinal: Reports: Nausea. Denies: Abdominal pain, Vomiting, Diarrhea, Melena, Hematochezia Genitourinary: Denies: Dysuria, Hematuria, Frequency Musculoskeletal: Denies: Back pain, Extremity Pain Skin: Denies: Rash, Wounds Neurological: Denies: Headache, Weakness, Numbness Physical Exam Vital Signs/Narrative: Vital Signs Temp Pulse Resp BP Pulse Ox 08/20/19 11:33 77 20 H 08/20/19 10:51 98.6 F 103 H 24 H 123/71 H 92 Inital Vital Signs reviewed: Yes General: Well nourished, Well developed, No Acute Distress Head: Normocephalic, Atraumatic Eyes: Perrl, EOMI, Pale conjunctiva ENT: Moist mucous membranes, No rhinorrhea, TM's clear Neck: Supple, Nontender Cardiovascular: Regular rate, Regular rhythm, No murmurs Respiratory: No distress, Chest nontender, Wheezing, Diminished, Decreased Air Movement Abdomen: Soft, Nontender, Nondistended, Normal bowel sounds Back: Nontender, Normal Inspection Extremities: Nontender, No edema Skin: Normal color, No rash Neurological: Alert, Oriented x3, Cranial nerves II-XII grossly intact, Normal Strength, Normal Sensation Psychological: Normal affect, Normal Mood Diagnostic/Tx/Re-eval Chest X-Ray - ED: 1 View, Read by ED Physician, Read by Radiologist, Right Infiltrate Clinical Impression(s) from Imaging Studies Chest X-Ray 08/20/19 11:15 IMPRESSION: Pleural parenchymal changes at the right lung base. Follow-up is recommended. Electronically Signed: Guillermo Shirley, at 11:40 EST , Service support , Laboratory Data 08/20/19 08/20/19 08/20/19 11:20 11:20 11:20 WBC 14.2 H RBC 3.97 L Hgb 12.3 L Hct 36.3 L MCV 91.4 MCH 31.0 MCHC 33.9 RDW Std Deviation 41.6 RDW Coeff of Leno 12.5 Plt Count 437 MPV 9.9 Immature Gran % (Auto) 1.800 H Neut % (Auto) 74.6 H Lymph % (Auto) 7.2 L [place] % (Auto) 14.6 H Eos % (Auto) 1.4 Baso % (Auto) 0.4 Absolute Neuts (auto) 10.6 H Absolute Lymphs (auto) 1.03 Nucleated RBC % 0 Differential Comment COMMENT Diff Path Review May foll PT INR Sodium 131 L Potassium 4.5 Chloride 98 Carbon Dioxide 26.0 Anion Gap 7 BUN 79 H Creatinine 2.24 H Estim Creat Clear Calc 31.60 Est GFR (MDRD) Af Amer 37 L Est GFR (MDRD) Non-Af 30 L BUN/Creatinine Ratio 35.3 H Glucose 189 H Calcium 8.5 Troponin I < 0.015 B-Natriuretic Peptide 19.8 08/20/19 11:20 WBC RBC Hgb Hct MCV MCH MCHC RDW Std Deviation RDW Coeff of Leon Plt Count MPV Immature Gran % (Auto) Neut % (Auto) Lymph % (Auto) [place] % (Auto) Eos % (Auto) Baso % (Auto) Absolute Neuts (auto) Absolute Lymphs (auto) Nucleated RBC % Differential Comment Diff Path Review PT 22.7 H INR 2.0 Sodium Potassium Chloride Carbon Dioxide Anion Gap BUN Creatinine Estim Creat Clear Calc Est GFR (MDRD) Af Amer Est GFR (MDRD) Non-Af BUN/Creatinine Ratio Glucose Calcium Troponin I B-Natriuretic Peptide - Rhythm Strip Rhythm Strip: Sinus Rhythm Rate: 98 Ectopy: None - EKG Initial EKG Interpretation: Junctional, - - Junctional rhythm at a rate of 98Normal QRS and QTcLeft axis deviationNormal ST segments Treatment - Dyspnea: Oxygen, Albuterol Repeat Evaluation: Improved - Medical Decision Making Patient evaluated for worsening shortness of breath and cough. He is acutely hypoxic and requiring 4 L of nasal cannula in the emergency room. He is otherwise stable in the emergency room. He does have a leukocytosis with a normal lactate. His creatinine is also elevated. It is 2.2 and his baseline is 1.3. Flu swab is negative. Chest x-ray shows thickening of the right minor fissure. As patient is dehydrated with respiratory symptoms I will treat empirically for pneumonia. I suspect an infiltrate will blossom on chest x-ray over the next day or 2. Patient started on IV fluids, Rocephin and azithromycin. He is on Eliquis and I am not concerned for PE. Patient does have wheezing so he is given Solu-Medrol as well as aerosols in the emergency room. Patient stable for PCU at time of disposition. ED Disposition - Plan for ED Patient: Disposition: Acute Care [facility] Diagnosis: Hypoxia, Pneumonia
[2019-08-20] MEDS: Albuterol 2.5 MG/3 ML VIAL.NEB. INHALATION ×2 (12:15)
[2019-08-20 12:16] LABS: Prothrombin Time (Protime)PT. 22.7 SECONDS (11.7-14.9)
[2019-08-20] MEDS: MethylPREDNISolone 125 MG/2 ML Vial IV (12:19)
[2019-08-20 12:20] LABS: BNP,B-Type NATRIURETIC PEPTIDE 19.8 pg/mL (0-100)
--- NOTE | 2019-08-20 12:42 | HP.PCM_ITS ---
History of Present Illness Date of Admission: 08/20/19 Chief Complaint: shortness of breath, general malaise The patient is a 79 year old M with an extensive past medical history as listed. He was admitted through the ED on 08/20/2019 with a complaint of general malaise, shortness of breath and cough. Patient states symptoms have been going on for a few days that he had general weakness and could not really eat. He also had a cough which is occasionally productive though he could not tell the color of the sputum. He had some mild exertional shortness of breath but denied any palpitations, dizziness, fever or chills, abdominal pain, diarrhea vomiting. Review of symptoms otherwise negative. In the ED, vitals were significant for respiratory rate of 24 with pulse rate of 75 and blood pressure of 101/60 with temperature of 97.3. Labs showed sodium of 131 with creatinine of 2.24 initial troponin was negative. CBC showed white cell count of 14.2 hemoglobin of 12.3 with platelets of 437. Lactic acid was 1.5. He was saturating at 84% on admission. Chest x-ray showed pleural parenchymal changes of the right lung base. He has been admitted to be managed for sepsis and acute hypoxic respiratory failure due to community-acquired pneumonia. [] Past Medical History Past Medical History (Chronic Problems): Chronic Problems (Last Updated 07/24/19 @ 10:08 by Laurence Mas) Hypothyroidism (Chronic) Essential hypertension (Chronic) Cardiac dysrhythmia (Chronic) Aortocoronary bypass status (Chronic ~06/20/07) CABG x5-DUEÑAS to LAD, bridge diagonal,SVG to lateral CX, SVG to post ventricular branch of the right bridge PDA 1@ [facility] 06/20/07 Bilateral carotid artery stenosis (Chronic) Hyperlipidemia (Chronic) Type 2 diabetes mellitus (Chronic) Presence of stent in coronary artery (Chronic ~04/16/04) PTCA/stent or prox RCA 04/16/04 @ [facility] Atherosclerotic heart disease of [place] coronary artery without angina pectoris (Chronic) PTCA/stent or prox RCA 04/16/04 @ [facility]; CABG x5-DUEÑAS to LAD, bridge diagonal,SVG to lateral CX, SVG to post ventricular branch of the right bridge PDA 1@ [facility] 06/20/07 Medical History: Medical History (Last Updated 07/24/19 @ 10:08 by Laurence Mas) Hypothyroidism (Chronic) E03.9 Essential hypertension (Chronic) I10 Paroxysmal atrial fibrillation (Acute) I48.0 Nonsustained ventricular tachycardia (Acute) I47.2 SVT (supraventricular tachycardia) (Acute) I47.1 Premature ventricular contraction (Acute) I49.3 Premature atrial contractions (Acute) I49.1 Bilateral carotid artery stenosis (Chronic) I65.23 Hyperlipidemia (Chronic) E78.5 Type 2 diabetes mellitus (Chronic) E11.9 Presence of stent in coronary artery (Chronic) Onset Date: ~04/16/04 Z95.5 PTCA/stent or prox RCA 04/16/04 @ [facility] Atherosclerotic heart disease of [place] coronary artery without angina pectoris (Chronic) I25.10 PTCA/stent or prox RCA 04/16/04 @ [facility]; CABG x5-DUEÑAS to LAD, bridge diagonal,SVG to lateral CX, SVG to post ventricular branch of the right bridge PDA 1@ [facility] 06/20/07 Bladder cancer C67.9 CAD S/P percutaneous coronary angioplasty I25.10, Z98.61 GERD (gastroesophageal reflux disease) K21.9 Peripheral vascular disease I73.9 History of left heart catheterization (LHC) Onset Date: ~10/31/18 Z98.890 LEFT MAIN: Mild calcification, Distal: Eccentric: 10-25 % Stenosis; LEFT ANTERIOR DECENDING ARTERY: PROX LAD: Severe calcification, Eccentric: 50 % Stenosis, DIAGONAL 1: Proximal - Filling from the DUEÑAS graft with no angiographically significant appearing disease distal to the graft anastomosis; CIRCUMFLEX ARTERY: PROX CIRC: Severe calcification, Eccentric: 90 % Stenosis; OM 1: Proximal - is subtotally occluded with the remainder of the vessel filling from the SVG graft with no angiograhically significant appearing disease distal the anastomosis; RIGHT CORONARY ARTERY: Severe calcification, MID RCA: is occluded RT PLV: Filling from the Sequential SVG graft to the RPDA and with no angiographically significant appearing disease distal to the graft anastomosis; RT PDA: Proximal - Filling from the SVG graft with no angiographically significant appearing disease distal to the graft anastomosis; GRAFTS: Right Posterior Lateral Vessel: Filling from the Sequential SVG graft to the RPDA and with no angiographically significant appearing disease distal to the graft anastomosis DUEÑAS graft to the 1st Diagonal is patent with the sequential portion to the LAD occluded Saphenous Vein graft to the 1st OM is patent; Saphenous Vein graft to the RPDA is patent with the sequential portion to the RPL patent; per cath 10/31/18 Allergies No Known Allergies Allergy (Verified 01/17/19 14:48) Home Medications: Ambulatory Orders Medication Instructions Recorded RX: Amlodipine [Norvasc] 10 mg PO DAILY 08/06/14 RX: Aspirin E.C. [Ecotrin] 81 mg PO DAILY@0800 08/06/14 RX: Lovastatin [Mevacor] 40 mg PO QHS 08/06/14 RX: Spironolactone [Aldactone] 25 mg PO DAILY 08/06/14 RX: Valsartan/Hydrochlorothiazide 1 tab PO DAILY 08/06/14 [Diovan Hct 320-25 MG Tablet] levothyroxine 200 mcg tablet 200 mcg PO QDAY 01/05/18 potassium 99 mg tablet 99 mg PO DAILY 07/13/18 propranolol 60 mg tablet 60 mg PO DAILY #90 cap 12/04/18 apixaban 5 mg tablet 5 mg PO BID #60 tab 12/18/18 isosorbide mononitrate ER 30 mg 30 mg PO DAILY #90 tab 12/18/18 tablet,extended release 24 hr Cholecalciferol (Vitamin D3) 5,000 unit PO DAILY 08/20/19 [Vitamin D3] Insulin Aspart [Novolog Flexpen 22 - 24 units SUBCUT TIDCM 08/20/19 ([facility])] Insulin Glargine,Hum.rec.anlog 55 unit SQ QHS 08/20/19 [Lantus Solostar] RX: Melatonin 10 mg PO QHS 08/20/19 Vitamin B Complex [B Complex] 1 tab PO DAILY 08/20/19 Surgical History: Surgical History (Last Updated 07/24/19 @ 10:08 by Laurence Mas) Aortocoronary bypass status (Chronic) Onset Date: ~06/20/07 Z95.1 CABG x5-DUEÑAS to LAD, bridge diagonal,SVG to lateral CX, SVG to post ventricular branch of the right bridge PDA 1@ [facility] 06/20/07 History of nasal surgery Z98.890 History of tonsillectomy Z90.89 Presence of coronary angioplasty implant and graft Onset Date: ~04/16/04 Z95.5 PTCA/stent or prox RCA 04/16/04 @ [facility] History of vasectomy Z98.52 Surgical History: coronary bypass surgery, humerus repair; screws present Smoking Status: Former smoker Alcohol: None Drugs: None - *Family History Maternal Family History: Family History (Last Updated 01/17/19 @ 14:55 by Lynn Wilcox) Mother Hypertension Heart disease Brother Myocardial infarction, Onset Age: 50 Brother Diabetes Review of Systems Constitutional: Reports: Anorexia, Malaise, Weakness, Fatigue. Denies: Chills, Fever Eyes: Denies: Blurred vision HEENT: Denies: Head Aches, Sinus Congestion, Sinus Drainage Cardiovascular: Denies: Chest Pain, Heaviness, Light Headedness, Orthopnea, Palpitations Respiratory: Reports: Cough, Shortness of Breath, Shortness of breath at rest, S hortness of breath upon exertion, Sputum production. Denies: Pleuritic Pain, Wheezing Gastrointestinal: Denies: Abdominal Pain, Nausea, Vomiting Genitourinary: Denies: Dysuria Musculoskeletal: Denies: Joint Pain, Joint Tenderness Skin: Denies: Rash, Wounds Neurological: Denies: Numbness, Tingling, Focal weakness Psychiatric: Denies: Anxiety, Depression, Homicidal Ideations, Suicidal Ideations Hematologic/ Lymphatic: Denies: Easy Bruising, Easy Bleeding VTE Information - Inpt Only VTE Present on Admission: No VTE Pharm Prophylaxis ordered?: Yes Patient Problems: Active and Suspected Problems (Last Updated 07/24/19 @ 10:08 by Laurence Mas) Hypoxia (Acute) Pneumonia (Acute) - Physical Exam Vitals/I&O's: Vital Signs Temp Pulse Resp BP Pulse Ox 97.3 F L 81 20 H 101/60 92 08/20/19 11:55 08/20/19 12:19 08/20/19 12:19 08/20/19 11:55 08/20/19 12:19 Oxygen Flow Rate (L/min) 2 Oxygen Delivery Method Nasal Cannula Weight: 264 lb 12.403 oz Body Mass Index (BMI) 34.0 General: Alert, Oriented x3, Cooperative, No apparent distress HEENT: Atraumatic, PERRLA, EOMI, Normocephalic Oral: Dry Mucosa Neck: Supple, No JVD, Negative Carotid Bruits Lungs: Tachypneic, - - decreased breath sounds bibasally, no wheezes or crackles. on 3L of oxygen Cardiovascular: Regular rate, Regular Rhythm, Normal S1, Normal S2, No murmurs Abdomen: Bowel Sounds Present, Soft, Non Tender, Non-Distended, No Hepato- splenomegaly Extremities: No clubbing, No cyanosis, No edema, Capillary Refill Less than 3 Seconds Skin: No rashes, No breakdown Musculoskeletal: No Tenderness to Palpation of Joints or Extremities Lymphatic: No Cervical, Supraclavicular, or Inguinal Adenopathy Neurological: Cranial nerves II-XII grossly intact, Neuro grossly intact, Motor Exam 5/5 strength throughout Psych/Mental Status: Normal Affect, Appropriate, Alert and oriented to time, place, person, mood and affect Laboratory Results 08/20/19 11:20: WBC 14.2 H, RBC 3.97 L, Hgb 12.3 L, Hct 36.3 L, MCV 91.4, MCH 31.0, MCHC 33.9, RDW Std Deviation 41.6, RDW Coeff of Leon 12.5, Plt Count 437, MPV 9.9, Immature Gran % (Auto) 1.800 H, Neut % (Auto) 74.6 H, Lymph % (Auto) 7.2 L, [place] % (Auto) 14.6 H, Eos % (Auto) 1.4, Baso % (Auto) 0.4, Absolute Neuts (auto) 10.6 H, Absolute Lymphs (auto) 1.03, Nucleated RBC % 0, Differential Comment COMMENT, Diff Path Review January08/20/19 11:20: Sodium 131 L, Potassium 4.5, Chloride 98, Carbon Dioxide 26.0, Anion Gap 7, BUN 79 H, Creatinine 2.24 H, Estim Creat Clear Calc 31.60, Est GFR (MDRD) Af Amer 37 L, Est GFR (MDRD) Non-Af 30 L, BUN/Creatinine Ratio 35.3 H, Glucose 189 H, Calcium 8.5, Troponin I < 0.015 08/20/19 11:20: B-Natriuretic Peptide 19.8 08/20/19 11:20: PT 22.7 H, INR 2.0 Diagnostic Data Chest X-Ray 08/20/19 11:15 IMPRESSION: Pleural parenchymal changes at the right lung base. Follow-up is recommended. Electronically Signed: Guillermo Shirley, at 11:40 EST , Service support , Current Medications Sodium Chloride () 1,000 mls @ 999 mls/hr IV .Q1H1M ONE Stop: 08/20/19 13:26 Azithromycin 500 mg/ Dextrose 255 mls @ 250 mls/hr IV X1 ONE Stop: 08/20/19 13:27 Ceftriaxone Sodium (Rocephin) 1 gm in 50 mls @ 100 mls/hr IV X1 ONE Stop: 08/20/19 12:55 Assessment/Plan All Active Problems (Last Updated 07/24/19 @ 10:08 by Laurence Mas) Hypoxia (Acute) Pneumonia (Acute) Paroxysmal atrial fibrillation (Acute) Chest pain (Acute) Abnormal stress test (Acute) Nonsustained ventricular tachycardia (Acute) SVT (supraventricular tachycardia) (Acute) Premature ventricular contraction (Acute) Premature atrial contractions (Acute) 79 y/o admitted with a complaint of general malaise, cough and shortness of breath 1. Sepsis due to community acquired pneumonia * Admit to PCU with telemetry. * SIRS criteria is 2/4 (tachypnea and leucocytosis) * CXR showed pleural parenchymal changes at the right lung base; follow up is recommended. * lactic acid is 1.5 * will check urine for strep and legionella, and check respiratory panel * sputum and blood cultures * start IV vancomycin and zosyn * hydrate with IVF NS @ 150cc/hr * titrate oxygen to maintain sats >90% * breathing treatments with duonebs * 2. Acute hypoxic respiratory failure due to community acquired pneumonia * was saturating at 84% on admission, and required up to 3.5L of oxygen * As under 1. * 3. TIFFANY on CKD stage III * Creatinine is 2.24 with baseline of around 1.35. * Due to sepsis. Will hydrate with IV fluids and monitor for improvement. * Will do further work-up if Cr doesnt trend downwards * 4. History of A. fib: On Eliquis. 5. Type 2 diabetes mellitus: Insulin sliding scale. Accu-Cheks AC at bedtime. On Lantus 55 units nightly. Will continue. 6. Hypothyroidism: Synthroid 7. CAD: On aspirin and propranolol as well as statin. 8. Hypertension: * On amlodipine, propranolol and spironolactone as well as losartan hydrochlorothiazide. Blood pressures running low so we will hold BP meds. DVT Prophylaxis: On Eliquis CODE STATUS: Full code * Patient counseled extensively about different types of CODE STATUS including full code, DNR CCA and DNR CCA. Patient elects to be full code. Total [id number] time 16 minutes. * Code Visit Inpatient E&M: 65687 Init Hosp L3 Procedures: 26917 Advncd Care Plan 30 Min
[2019-08-20] MEDS: Ceftriaxone 1 GM/50 ML BAG IV (12:44)
[2019-08-20] MEDS: 0.9% Normal Saline 1,000 ML 999 ML IV (12:50)
--- NOTE | 2019-08-20 12:57 | NURSING ---
129 ACUTE HYPOXIC RESP INSUFF, CAP KORAM
[2019-08-20 14:04] LABS: Lactic Acid 1.5 mmol/L (0.4-1.9)
[2019-08-20] MEDS: Insulin Lispro 100 UNIT/ML INSULN.PEN SC ×2 (16:57→21:37)
[2019-08-20] MEDS: 0.9% Normal Saline 1,000 ML 150 ML IV ×2 (16:58→23:44)
[2019-08-20] MEDS: Glucerna Shake 120 ML LIQUID PO ×2 (16:59→21:31)
[2019-08-20] MEDS: 0.9% Saline Lock 10 ML Syringe IV (17:06)
[2019-08-20 17:15] LABS: Bedside Glucose 274 mg/dL (70-110)
[2019-08-20] MEDS: guaiFENesin 1,200 MG Tablet 1200 MG PO (21:31)
[2019-08-20] MEDS: APIXABAN 5 MG TABLET PO (21:31)
[2019-08-20] MEDS: MELATONIN 10 MG TABLET PO (21:31)
[2019-08-20] MEDS: Atorvastatin Calcium 20 MG Tablet PO (21:32)
[2019-08-20 22:20] LABS: Bedside Glucose 332 mg/dL (70-110)
[2019-08-21] VITALS (16 sets, daily range): BP systolic 101–152; BP diastolic 47–77; PULSE 61–114; RESP 16–20; TEMP 36.4–36.8; O2SAT 93–95
[2019-08-21] MEDS: Levothyroxine 100 MCG Tablet 200 MCG PO (05:37)
[2019-08-21 06:02] LABS: Absolute Lymphocyte Count 1.07 X10^3/uL (0.83-4.51); Basophil# 0.02 X10^3/uL; Basophil% 0.1 % (0-1); Hematocrit 33.9 % (40-54); Hemoglobin 11.2 g/dL (13.0-16.5); Lymphocyte # 1.07 X10^3/ul (4.0); Lymphocyte % 6.2 % (19-41); Mean Corpuscular Hgb 30.3 pg (27.0-32.0); Mean Corpuscular Volume 91.6 fL (80-94); Mean Platelet Vol. 10.3 fl (6.2-12.0); Monocyte# 1.91 X10^3/uL; Monocyte% 11.1 % (0-10); NRBC Flagged by Analyzer 0 % (0-5); Neutrophil # 13.95 X10^3/uL (2.7-7.7); Neutrophil % 81.1 % (47-70); POSITIVE DIFFERENTIAL YES; Platelet Count 400 K/mm3 (150-450); RBC Distribution Width CV 12.7 % (11.6-14.6); RBC Distribution Width SD 42.1 fl (35.1-43.9); White Blood Count 17.2 K/mm3 (4.4-11.0)
[2019-08-21 06:19] LABS: Anion Gap 8 (5-15); BUN 95 mg/dL (7-18); BUN/Creat Ratio 41.3 RATIO (10-20); Calcium,Total 7.9 mg/dL (8.5-10.1); Chloride 101 mmol/L (98-107); EST Glomerular Filtration Rate 29 mL/min (>60); Est Glom Filt Rate - Afr Amer 36 mL/min (>60); Estimated Creatinine Clearance 30.78 ml/min; Glucose 272 mg/dL (74-106); Potassium 4.9 mmol/L (3.5-5.1); Sodium Level 132 mmol/L (136-145)
[2019-08-21 06:30] LABS: Differential Indicated SCAN CRITERIA MET
[2019-08-21] MEDS: Ipratropium/Albuterol Sulfate 3 ML AMPUL.NEB INHALATION ×4 (07:16→19:18)
[2019-08-21] MEDS: Vitamin B Comp W-C Capsule 1 CAP PO (08:36)
[2019-08-21] MEDS: Aspirin E.C. 81 MG Tablet PO (08:36)
[2019-08-21] MEDS: guaiFENesin 1,200 MG Tablet 1200 MG PO ×2 (08:36→21:54)
[2019-08-21] MEDS: APIXABAN 5 MG TABLET PO ×2 (08:36→21:52)
[2019-08-21] MEDS: Isosorbide Mononitrate 30 MG Tablet PO (08:36)
[2019-08-21] MEDS: Insulin Lispro 100 UNIT/ML INSULN.PEN SC ×3 (08:37→16:58)
[2019-08-21] MEDS: Glucerna Shake 120 ML LIQUID PO ×4 (08:37→22:00)
[2019-08-21] MEDS: Insulin Lispro 100 UNIT/ML INSULN.PEN 22 UNIT SC ×3 (08:38→16:58)
[2019-08-21 09:06] LABS: Bedside Glucose 242 mg/dL (70-110)
[2019-08-21 09:31] LABS: Pathologist Review Reviewed
[2019-08-21 12:06] LABS: Pathologist Review Reviewed
--- NOTE | 2019-08-21 13:42 | CASEMGMT ---
OMARI PERALES assessment: Face to Face with patient for initial transition planning/care coordination assessment. OMARI PERALES introduced self and role at [facility], pt voices understanding and consents to assessment at this time. Pt is sitting up in chair in no distress at this time. Pt is A/Ox4 at this time and answers all questions appropriately at this time. Care providers, pharmacy, and demographics verified/updated at this time. Presentation: Cough/malaise for past week, occasional vomiting, cough, SOB. increased weakness Admitting dx: Acute hypoxia, resp insufficiency, CAP PCP: Palak Cuellar Specialists: Poppy, cardio Preferred Pharmacy: [facility] Insurance: [facility] Prescription Benefit: [facility] Living Will/HPOA: Pt states has LW/HPOA and they are currently on file at [facility] at this time. Pt states that his , Sindhu Engel, is HPOA. LNOK: Sindhu Engel, ; Woodrow Engel, son Living Arrangements: Pt states lives with in 1 story home and states no concerns at home at this time. Pt states is independent with ADL's. Transportation: Pt states drives self and states no transportation concerns at this time. DME/HHC: Pt states has grab bars and states no further DME needed at this time. Pt is currently on 5liters of oxygen and does not have home oxygen currently. Pt provided list of in-network DME companies at this time. CM to follow for home oxygen need. Pt states no hx of HHC or SNF in the past. Pt states no concerns with going home at time of discharge. Pt is retired. Pt states does not smoke or drink ETOH. Pt states no further concerns/needs at this time. CM to follow for home oxygen need and for any further discharge planning/needs. Advised pt to ask for CM if any further questions/concerns/needs arise, voices understanding. Pt Goal: Home without home oxygen. Plan: [place] OMARI PERALES
[2019-08-21] MEDS: Acetaminophen 325 MG Tablet 650 MG PO (14:12)
--- NOTE | 2019-08-21 14:51 | PCM.PN.HOSP ---
Patient Problems: Active and Suspected Problems (Last Updated 07/24/19 @ 10:08 by Laurence Mas) Hypoxia (Acute) Pneumonia (Acute) Subjective: Patient seen and examined. He states he feels much better today and shortness of breath is improved. He still coughing and bringing up sputum but he says he does not know the color of the sputum. He denies any lightheadedness or dizziness, palpitations, chest pain, abdominal pain, diarrhea or vomiting. He does say he was told overnight that he went into A. fib. Patient does have a history of A. fib but he now tells me that he does not member he has A. fib. Per discussion with nurse, there is no documentation that patient went into A. fib overnight. Labs and vitals reviewed. WBC noted to have trended up to 17 today. Vitals/I&O's: Vital Signs Temp Pulse Resp BP Pulse Ox 97.6 F L 78 16 101/47 L 93 08/21/19 13:49 08/21/19 13:49 08/21/19 13:49 08/21/19 13:49 08/21/19 13:49 Oxygen Flow Rate (L/min) 3 Oxygen Delivery Method Nasal Cannula Weight: 264 lb 12.403 oz Body Mass Index (BMI) 34.0 Intake and Output for Last 24 Hours 08/19/19 08/20/19 08/21/19 23:59 23:59 23:59 Intake Total 2545 / 2665 2084 Balance 2545 / 2665 2084 General: Alert, Oriented x3, Cooperative, No apparent distress HEENT: Atraumatic, PERRLA, EOMI, Normocephalic Oral: Dry Mucosa Neck: Supple, No JVD, Negative Carotid Bruits Lungs: Tachypneic, - - decreased breath sounds bibasally, no wheezes or crackles. on 3L of oxygen Cardiovascular: Regular rate, Regular Rhythm, Normal S1, Normal S2, No murmurs Abdomen: Bowel Sounds Present, Soft, Non Tender, Non-Distended, No Hepato-splenomegaly Extremities: No clubbing, No cyanosis, No edema, Capillary Refill Less than 3 Seconds Skin: No rashes, No breakdown Musculoskeletal: No Tenderness to Palpation of Joints or Extremities Lymphatic: No Cervical, Supraclavicular, or Inguinal Adenopathy Neurological: Cranial nerves II-XII grossly intact, Neuro grossly intact, Motor Exam 5/5 strength throughout Psych/Mental Status: Normal Affect, Appropriate, Alert and oriented to time, place, person, mood and affect Microbiology Past 72 Hours 08/20/19 15:35 Mucosa - Nose Respiratory Panel (PCR) - Final 08/20/19 18:45 Urine, Clean Catch Streptococcus pneumoniae Antigen (M - Final 08/20/19 18:45 Urine, Clean Catch Legionella Antigen - Final 08/20/19 13:26 Mucosa - Nose Influenza Types A,B Direct FA (LILIBETH) - Final Laboratory Results 08/20/19 11:20: Diff Path Review Reviewed 08/20/19 16:51: POC Glucose 274 H 08/20/19 21:35: POC Glucose 332 H 08/21/19 05:20: WBC 17.2 H, RBC 3.70 L, Hgb 11.2 L, Hct 33.9 L, MCV 91.6, MCH 30.3, MCHC 33.0, RDW Std Deviation 42.1, RDW Coeff of Leon 12.7, Plt Count 400, MPV 10.3, Immature Gran % (Auto) 1.500 H, Neut % (Auto) 81.1 H, Lymph % (Auto) 6.2 L, Dupage % (Auto) 11.1 H, Eos % (Auto) 0.0, Baso % (Auto) 0.1, Absolute Neuts (auto) 14.0 H, Absolute Lymphs (auto) 1.07, Nucleated RBC % 0, Diff Path Review Reviewed 08/21/19 05:20: Sodium 132 L, Potassium 4.9, Chloride 101, Carbon Dioxide 23.0, Anion Gap 8, BUN 95 H, Creatinine 2.30 H, Estim Creat Clear Calc 30.78, Est GFR (MDRD) Af Amer 36 L, Est GFR (MDRD) Non-Af 29 L, BUN/Creatinine Ratio 41.3 H, Glucose 272 H, Calcium 7.9 L 08/21/19 08:32: POC Glucose 242 H Diagnostic Data Chest X-Ray 08/20/19 11:15 IMPRESSION: Pleural parenchymal changes at the right lung base. Follow-up is recommended. Electronically Signed: Guillermo Shirley, at 11:40 EST , Service support , Current Medications Acetaminophen (Tylenol) 650 mg PO Q6H PRN PRN PRN Reason: Pain or Fever Last Admin: 08/21/19 14:12 Dose: 650 mg Documented by: Albuterol/Ipratropium (Duoneb) 3 ml INHALATION Q4H.RT [facility] Last Admin: 08/21/19 14:36 Dose: 3 ml Documented by: Apixaban (Eliquis) 5 mg PO BID [facility] Last Admin: 08/21/19 08:36 Dose: 5 mg Documented by: Aspirin (Ecotrin) 81 mg PO DAILY@0800 [facility] Last Admin: 08/21/19 08:36 Dose: 81 mg Documented by: Atorvastatin Calcium (Lipitor) 20 mg PO QHS [facility] Last Admin: 08/20/19 21:32 Dose: 20 mg Documented by: Cholecalciferol (Vitamin D) 5,000 unit PO DAILY [facility] Last Admin: 08/21/19 08:36 Dose: 5,000 unit Documented by: Glucagon () 1 mg IM .X1 PRN PRN Reason: Hypoglycemia Guaifenesin (Mucinex) 1,200 mg PO BID [facility] Last Admin: 08/21/19 08:36 Dose: 1,200 mg Documented by: Sodium Chloride () 250 mls @ 15 mls/hr IV .[id number] PRN PRN Reason: Saline Flush Ceftriaxone Sodium 2 gm/ (Sodium Chloride) 50 mls @ 100 mls/hr IV Q24 [facility] Stop: 08/28/19 10:01 Last Infusion: 08/21/19 09:41 Dose: Infused Documented by: Azithromycin 500 mg/ Dextrose 255 mls @ 250 mls/hr IV Q24 [facility] Stop: 08/26/19 10:01 Last Infusion: 08/21/19 10:59 Dose: Infused Documented by: Dextrose (Dextrose 10%-Water) 250 mls @ 999 mls/hr IV X1 PRN; Protocol PRN Reason: HYPOGLYCEMIA Insulin Glargine (Lantus (Bk)) 55 units SC QHS [facility] Last Admin: 08/20/19 21:39 Dose: 55 u Documented by: Insulin Human Lispro (Humalog Kwikpen ([facility])) 22 unit SC TIDCM [facility] Last Admin: 08/21/19 12:17 Dose: 22 u Documented by: Insulin Human Lispro (Humalog Kwikpen (Bkc)) 0 unit SC ACHS [facility]; Protocol Last Admin: 08/21/19 12:17 Dose: 4 units Documented by: Isosorbide Mononitrate (Imdur) 30 mg PO DAILY [facility] Last Admin: 08/21/19 08:36 Dose: 30 mg Documented by: Levothyroxine Sodium (Synthroid) 200 mcg PO DAILY@0600 [facility] Last Admin: 08/21/19 05:37 Dose: 200 mcg Documented by: Melatonin (Melatonin) 10 mg PO QHS [facility] Last Admin: 08/20/19 21:31 Dose: 10 mg Documented by: Multivitamins (Allbee W/C Caplet, Thera B Comp/C) [facility] Last Admin: 08/21/19 08:36 Dose: 1 capsule Documented by: Nutritional Formula (Lactose Free) (Glucerna Shake) 120 ml PO 4X/DAY [facility] Last Admin: 08/21/19 13:44 Dose: 120 ml Documented by: Ondansetron HCl (Zofran) 4 mg IV Q8H PRN PRN PRN Reason: NAUSEA/VOMITING Sodium Chloride () 10 - 40 ml IV UD PRN PRN Reason: SALINE FLUSH Last Admin: 08/20/19 17:06 Dose: 10 ml Documented by: STROKE Vital Signs/Narrative: Vital Signs Temp Pulse Resp BP Pulse Ox 08/21/19 13:49 97.6 F L 78 16 101/47 L 93 08/21/19 11:39 91 20 H 08/21/19 11:01 97 Medical Necessity - Tobacco Use Smoking Status: Former smoker Assessment/Plan All Active Problems (Last Updated 07/24/19 @ 10:08 by Laurence Mas) Hypoxia (Acute) Pneumonia (Acute) Paroxysmal atrial fibrillation (Acute) Chest pain (Acute) Abnormal stress test (Acute) Nonsustained ventricular tachycardia (Acute) SVT (supraventricular tachycardia) (Acute) Premature ventricular contraction (Acute) Premature atrial contractions (Acute) 79 y/o admitted with a complaint of general malaise, cough and shortness of breath 1. Sepsis due to community acquired pneumonia Admit to PCU with telemetry. SIRS criteria now 1/ (leucocytosis). wbc trended up to 17.2 today. of note, patient received one dose of solumedrol in the ED, this is likely what is accounting for the elevated wbc, he is clinically improved. Urine for strep and Legionella negative respiratory panel was also negative. Blood culture and sputum culture are pending. Currently on IV ceftriaxone and azithromycin. Will continue. Continue gentle hydration. Titrate oxygen to maintain saturation above 90%. Continue breathing treatments with DuoNeb's. 2. Acute hypoxic respiratory failure due to community acquired pneumonia was saturating at 84% on admission, and required up to 3.5L of oxygen As under 1. 3. TIFFANY on CKD stage III Creatinine is up to 2.3 today. Baseline is around 1.5 Continue very gentle hydration with IV fluids. will check Feurea and kidney USG as well as urinalysis. 4. History of A. fib: On Eliquis. He says he was told he went into A. fib yesterday but he has remained rate and rhythm controlled. No evidence of patient going into A. fib overnight. Will monitor. 5. Type 2 diabetes mellitus: Insulin sliding scale. Accu-Cheks AC at bedtime. On Lantus 55 units nightly. 6. Hypothyroidism: Synthroid 7. CAD: On aspirin and propranolol as well as statin. 8. Hypertension: On amlodipine, propranolol and spironolactone as well as losartan hydrochlorothiazide. BP meds held on admission o/a of hypotension. continue holding BP meds as BP is in low 100s systolic. DVT Prophylaxis: On Eliquis CODE STATUS: Full code Code Visit Inpatient E&M: 16541 Subs Hosp L3
--- NOTE | 2019-08-21 15:00 | US_ITS ---
STUDY: RENAL ULTRASOUND - COMPLETE REASON FOR EXAM: Male, 79 years old. Chronic renal failure TECHNIQUE: Ultrasound evaluation of the kidneys was performed with real-time and static thorpe-scale imaging. COMPARISON: None. FINDINGS: Aorta: Visualized portions of abdominal aorta are normal in diameter. IVC: Visualized portions appear patent. Right kidney: Measures 13.0 cm. Normal contour. Renal cortical thickness appears decreased. No cysts. No masses, stones, or hydronephrosis identified. Left kidney: Measures 12.6 cm. Normal contour. Renal cortical thickness appears decreased. No cysts. No masses, stones, or hydronephrosis identified. Bladder: No intrinsic masses, stones, or abnormal dilatation noted. Partially visualized right pleural effusion. US/Kidney and Bladder IMPRESSION: Partially visualized right pleural effusion. Mild bilateral renal cortical atrophy. Electronically Signed: Jeremias Kwan, at 20:22 EST Tel , Service support ,
[2019-08-21 16:26] LABS: Bedside Glucose 259 mg/dL (70-110)
[2019-08-21 17:06] LABS: Bedside Glucose 170 mg/dL (70-110)
[2019-08-21] MEDS: 0.9% Normal Saline 1,000 ML 125 ML IV (17:25)
[2019-08-21 21:53] LABS: Bacteria 0 SEEN /hpf (None Seen); Mucous, Urine 0 SEEN /hpf (<or=2+); Red Blood Cells-Urine 0 SEEN /hpf (0-5); White Blood Cells 0 SEEN /hpf (0-5)
[2019-08-21] MEDS: Atorvastatin Calcium 20 MG Tablet PO (21:53)
[2019-08-21] MEDS: MELATONIN 10 MG TABLET PO (21:53)
[2019-08-21 22:00] LABS: Color, Urine Yellow (Yellow); Glucose, Dipstick Normal (Normal); Ketone-Dipstick 5 mg/dl (Negative); Leukocyte Esterase-Dipstick Negative /ul (Negative); Nitrite-Dipstick Negative (Negative); Occult Blood-Urine Negative /ul (Negative); Protein-Dipstick Negative (Negative); Urine Bilirubin Dipstick Negative (Negative); Urine Clarity Sl. Cloudy (Clear); Urine Urobilinogen Normal (Normal)
[2019-08-21 22:06] LABS: Urea Nitrogen, Urine 991 mg/dL (NO RANGE EST.)
[2019-08-21 22:14] LABS: Squamous Epithelial Cells - UA 0-5 SEEN /hpf (0-5)
[2019-08-21 22:21] LABS: Bedside Glucose 114 mg/dL (70-110)
[2019-08-22] MEDS: 0.9% Normal Saline 1,000 ML 125 ML IV ×2 (01:22→11:05)
[2019-08-22 02:57] VITALS: PULSE 96
--- NOTE | 2019-08-22 03:15 | NURSING ---
report and care given to Monse SALCIDO at this time
[2019-08-22 04:30] VITALS: BP 127/69; PULSE 93; RESP 20; TEMP 36.7; O2SAT 95
[2019-08-22] MEDS: Acetaminophen 325 MG Tablet 650 MG PO ×2 (04:43→09:53)
[2019-08-22] MEDS: Levothyroxine 100 MCG Tablet 200 MCG PO (04:50)
[2019-08-22 05:18] LABS: Absolute Lymphocyte Count 1.23 X10^3/uL (0.83-4.51); Absolute Neutrophil Count 13.7 X10^3/uL (2.0-7.7); Basophil# 0.06 X10^3/uL; Basophil% 0.3 % (0-1); Eosinophil# 0.14 X10^3/uL; Eosinophils% 0.8 % (0-5); Hematocrit 34.8 % (40-54); Hemoglobin 11.6 g/dL (13.0-16.5); Lymphocyte # 1.23 X10^3/ul (4.0); Lymphocyte % 6.8 % (19-41); Mean Corp Hgb Conc 33.3 g/dL (32-36); Mean Corpuscular Hgb 30.9 pg (27.0-32.0); Mean Corpuscular Volume 92.6 fL (80-94); Mean Platelet Vol. 9.9 fl (6.2-12.0); Monocyte# 2.51 X10^3/uL; Monocyte% 13.9 % (0-10); NRBC Flagged by Analyzer 0 % (0-5); Neutrophil # 13.73 X10^3/uL (2.7-7.7); Neutrophil % 76.2 % (47-70); POSITIVE DIFFERENTIAL YES; Platelet Count 474 K/mm3 (150-450); RBC Distribution Width CV 12.8 % (11.6-14.6); RBC Distribution Width SD 42.8 fl (35.1-43.9); Red Blood Count 3.76 M/mm3 (4.6-6.2)
[2019-08-22 05:30] LABS: Differential Indicated SCAN CRITERIA MET
[2019-08-22 05:42] LABS: Anion Gap 8 (5-15); BUN 104 mg/dL (7-18); BUN/Creat Ratio 49.3 RATIO (10-20); Chloride 105 mmol/L (98-107); Creatinine, Serum 2.11 mg/dL (0.70-1.30); EST Glomerular Filtration Rate 32 mL/min (>60); Est Glom Filt Rate - Afr Amer 39 mL/min (>60); Estimated Creatinine Clearance 33.55 ml/min; Glucose 182 mg/dL (74-106); Potassium 4.8 mmol/L (3.5-5.1); Sodium Level 135 mmol/L (136-145)
--- NOTE | 2019-08-22 05:48 | NURSING ---
Pts primary rn aware of bun lab result of 104 at this time.
--- NOTE | 2019-08-22 07:00 | PCM.PN.BLA ---
Progress Note Will start patient propanolol since patient's blood pressure now can tolerate and further patient is having tachycardia. STROKE Vital Signs/Narrative: Vital Signs Temp Pulse Resp BP Pulse Ox 08/22/19 04:30 98.0 F 93 20 H 127/69 H 95
[2019-08-22 07:03] VITALS: PULSE 75; RESP 18; O2SAT 92
[2019-08-22] MEDS: Propranolol LA 60 MG Capsule PO (07:38)
[2019-08-22] MEDS: Insulin Lispro 100 UNIT/ML INSULN.PEN 22 UNIT SC (08:05)
[2019-08-22] MEDS: Insulin Lispro 100 UNIT/ML INSULN.PEN SC (08:06)
[2019-08-22] MEDS: Vitamin B Comp W-C Capsule 1 CAP PO (08:08)
[2019-08-22] MEDS: Aspirin E.C. 81 MG Tablet PO (08:08)
[2019-08-22] MEDS: guaiFENesin 1,200 MG Tablet 1200 MG PO (08:09)
[2019-08-22] MEDS: APIXABAN 5 MG TABLET PO (08:09)
[2019-08-22] MEDS: Glucerna Shake 120 ML LIQUID PO (08:09)
[2019-08-22] MEDS: Isosorbide Mononitrate 30 MG Tablet PO (08:09)
[2019-08-22 08:52] VITALS: PULSE 119
--- NOTE | 2019-08-22 08:52 | CT_ITS ---
STUDY: CT CHEST WITHOUT CONTRAST REASON FOR EXAM: Male, 79 years old. Shortness of breath, cough RADIATION DOSAGE (If Supplied By Facility): CTDIvol = ( 20.13 ) mGy, DLP = ( 613.70 ) mGycm TECHNIQUE: Transaxial imaging was performed without the administration of intravenous contrast material. Individualized dose optimization techniques were used for this CT. COMPARISON: None. FINDINGS: Status post median sternotomy. Alveolar density in the posterior right upper lobe consistent with pneumonia. There is a multiloculated dense pleural effusion surrounding the upper right lung worrisome for empyema. There is a moderate-sized free-flowing pleural effusion surrounding the lower lobe with right lower lobe collapse. Normal heart and pericardium. Right paratracheal lymphadenopathy with the largest node being the azygos node measuring 1.6 x 2.2 cm. This is likely reactive. Normal hilar regions. Normal unenhanced pulmonary arteries. Normal aorta arch and descending thoracic aorta. Normal osseous structures. There is no demonstrated abnormality of the visualized upper abdomen. CT/Chest without Contrast IMPRESSION: Right upper lobe pneumonia with complicated moderate right pleural effusion worrisome for empyema and reactive right paratracheal lymphadenopathy. Follow-up is recommended to exclude bronchogenic carcinoma. Electronically Signed: Alton Cordova MD at 9:35 EST Tel , Service support ,
[2019-08-22 09:27] LABS: BNP,B-Type NATRIURETIC PEPTIDE 17.1 pg/mL (0-100)
--- NOTE | 2019-08-22 10:02 | PN_ITS ---
Patient Problems: Active and Suspected Problems (Last Updated 07/24/19 @ 10:08 by Laurence Mas) Hypoxia (Acute) Pneumonia (Acute) Subjective: Patient seen and examined. He states he feels much worse today and still feels very short of breath. He states his cough was worse during the night leading to him having very little sleep. He denies any fever or chills. He is still not able to expectorate with coughing. Less tachycardic and so was started on propranolol by night hospitalist. Requiring 4 L of oxygen. Creatinine is also trended down to 2.11. WBC is however up to 18. Vitals/I&O's: Vital Signs Temp Pulse Resp BP Pulse Ox 98.0 F 119 H 18 127/69 H 92 08/22/19 04:30 08/22/19 08:52 08/22/19 07:03 08/22/19 04:30 08/22/19 07:03 Oxygen Flow Rate (L/min) 4 Oxygen Delivery Method Nasal Cannula Weight: 264 lb 12.403 oz Body Mass Index (BMI) 34.0 Intake and Output for Last 24 Hours 08/20/19 08/21/19 08/22/19 23:59 23:59 23:59 Intake Total 2545 / 2665 3986.67 / 3986.67 1870.41 / 1870.41 Output Total 400 / 400 325 / 325 Balance 2545 / 2665 3586.67 / 3586.67 1545.41 / 1545.41 General: Alert, Oriented x3, Cooperative, No apparent distress HEENT: Atraumatic, PERRLA, EOMI, Normocephalic Oral: Dry Mucosa Neck: Supple, No JVD, Negative Carotid Bruits Lungs: Tachypneic, - - decreased breath sounds bibasally, mainly in right lower lung rae. On 4L of oxygen. Cardiovascular: tachycardic, Regular Rhythm, Normal S1, Normal S2, No murmurs Abdomen: Bowel Sounds Present, Soft, Non Tender, Non-Distended, No Hepato- splenomegaly Extremities: No clubbing, No cyanosis, No edema, Capillary Refill Less than 3 Seconds Skin: No rashes, No breakdown Musculoskeletal: No Tenderness to Palpation of Joints or Extremities Lymphatic: No Cervical, Supraclavicular, or Inguinal Adenopathy Neurological: Cranial nerves II-XII grossly intact, Neuro grossly intact, Motor Exam 5/5 strength throughout Psych/Mental Status: Normal Affect, Appropriate, Alert and oriented to time, place, person, mood and affect Microbiology Past 72 Hours 08/20/19 15:35 Mucosa - Nose Respiratory Panel (PCR) - Final 08/20/19 18:45 Urine, Clean Catch Streptococcus pneumoniae Antigen (M - Final 08/20/19 18:45 Urine, Clean Catch Legionella Antigen - Final 08/20/19 13:26 Mucosa - Nose Influenza Types A,B Direct FA (LILIBETH) - Final Laboratory Results 08/21/19 05:20: Diff Path Review Reviewed 08/21/19 12:15: POC Glucose 259 H 08/21/19 16:56: POC Glucose 170 H 08/21/19 21:28: Urine Creatinine 154.00 08/21/19 21:28: Urine Color Yellow, Urine Clarity Sl. Cloudy, Urine pH 5.0, Ur Specific [place] 1.020, Urine Protein Negative, Urine Glucose (UA) Normal, Urine Ketones 5 H, Urine Occult Blood Negative, Urine Nitrite Negative, Urine Bilirubin Negative, Urine Urobilinogen Normal, Ur Leukocyte Esterase Negative, Urine RBC 0 SEEN, Urine WBC 0 SEEN, Ur Squamous Epith Cells 0-5 SEEN, Urine Bacteria 0 SEEN, Urine Mucus 0 SEEN 08/21/19 21:28: Urine Urea Nitrogen 991 08/21/19 21:57: POC Glucose 114 H 08/22/19 05:10: WBC 18.0 H, RBC 3.76 L, Hgb 11.6 L, Hct 34.8 L, MCV 92.6, MCH 30.9, MCHC 33.3, RDW Std Deviation 42.8, RDW Coeff of Leon 12.8, Plt Count 474 H, MPV 9.9, Immature Gran % (Auto) 2.000 H, Neut % (Auto) 76.2 H, Lymph % (Auto) 6.8 L, Sunflower % (Auto) 13.9 H, Eos % (Auto) 0.8, Baso % (Auto) 0.3, Absolute Neuts (auto) 13.7 H, Absolute Lymphs (auto) 1.23, Nucleated RBC % 0, Diff Path Review May 08/22/19 05:10: Sodium 135 L, Potassium 4.8, Chloride 105, Carbon Dioxide 22.0, Anion Gap 8, BUN 104 H*, Creatinine 2.11 H, Estim Creat Clear Calc 33.55, Est GFR (MDRD) Af Amer 39 L, Est GFR (MDRD) Non-Af 32 L, BUN/Creatinine Ratio 49.3 H , Glucose 182 H, Calcium 8.0 L 08/22/19 05:10: B-Natriuretic Peptide 17.1 Diagnostic Data Chest X-Ray 08/20/19 11:15 IMPRESSION: Pleural parenchymal changes at the right lung base. Follow-up is recommended. Electronically Signed: Guillermo Shirley, at 11:40 EST , Service support , Renal Ultrasound 08/21/19 15:00 IMPRESSION: Partially visualized right pleural effusion. Mild bilateral renal cortical atrophy. Electronically Signed: Jeremias Kwan, at 20:22 EST Tel , Service support , Chest CT 08/22/19 08:52 IMPRESSION: Right upper lobe pneumonia with complicated moderate right pleural effusion worrisome for empyema and reactive right paratracheal lymphadenopathy. Follow-up is recommended to exclude bronchogenic carcinoma. Electronically Signed: Alton Cordova MD at 9:35 EST Tel , Service support , Current Medications Acetaminophen (Tylenol) 650 mg PO Q6H PRN PRN PRN Reason: Pain or Fever Last Admin: 08/22/19 09:53 Dose: 650 mg Documented by: Albuterol/Ipratropium (Duoneb) 3 ml INHALATION Q4H.RT [facility] Last Admin: 08/22/19 03:37 Dose: Not Given Documented by: Apixaban (Eliquis) 5 mg PO BID [facility] Last Admin: 08/22/19 08:09 Dose: 5 mg Documented by: Aspirin (Ecotrin) 81 mg PO DAILY@0800 [facility] Last Admin: 08/22/19 08:08 Dose: 81 mg Documented by: Atorvastatin Calcium (Lipitor) 20 mg PO QHS [facility] Last Admin: 08/21/19 21:53 Dose: 20 mg Documented by: Cholecalciferol (Vitamin D) 5,000 unit PO DAILY [facility] Last Admin: 08/22/19 08:09 Dose: 5,000 unit Documented by: Glucagon () 1 mg IM .X1 PRN PRN Reason: Hypoglycemia Guaifenesin (Mucinex) 1,200 mg PO BID [facility] Last Admin: 08/22/19 08:09 Dose: 1,200 mg Documented by: Sodium Chloride () 250 mls @ 15 mls/hr IV .[id number] PRN PRN Reason: Saline Flush Azithromycin 500 mg/ Dextrose 255 mls @ 250 mls/hr IV Q24 [facility] Stop: 08/26/19 10:01 Last Infusion: 08/22/19 09:54 Dose: Infused Documented by: Dextrose (Dextrose 10%-Water) 250 mls @ 999 mls/hr IV X1 PRN; Protocol PRN Reason: HYPOGLYCEMIA Piperacillin Sod/Tazobactam (Sod 3.375 gm/ Sodium Chloride) 50 mls @ 12.5 mls/hr IV Q8 [facility] Insulin Glargine (Lantus (Bkc)) 55 units SC QHS [facility] Last Admin: 08/21/19 22:02 Dose: 55 u Documented by: Insulin Human Lispro (Humalog Kwikpen (Bk)) 22 unit SC TIDCM [facility] Last Admin: 08/22/19 08:05 Dose: 22 u Documented by: Insulin Human Lispro (Humalog Kwikpen (Bkc)) 0 unit SC ACHS [facility]; Protocol Last Admin: 08/22/19 08:06 Dose: 2 units Documented by: Isosorbide Mononitrate (Imdur) 30 mg PO DAILY [facility] Last Admin: 08/22/19 08:09 Dose: 30 mg Documented by: Levothyroxine Sodium (Synthroid) 200 mcg PO DAILY@0600 [facility] Last Admin: 08/22/19 04:50 Dose: 200 mcg Documented by: Melatonin (Melatonin) 10 mg PO QHS [facility] Last Admin: 08/21/19 21:53 Dose: 10 mg Documented by: Multivitamins (Allbee W/C Caplet, Thera B Comp/C) [facility] capsule [facility] Last Admin: 08/22/19 08:08 Dose: 1 capsule Documented by: Nutritional Formula (Lactose Free) (Glucerna Shake) 120 ml PO 4X/DAY [facility] Last Admin: 08/22/19 08:09 Dose: 120 ml Documented by: Ondansetron HCl (Zofran) 4 mg IV Q8H PRN PRN PRN Reason: NAUSEA/VOMITING Propranolol HCl (Inderal La) 60 mg PO DAILY [facility] Last Admin: 08/22/19 07:38 Dose: 60 mg Documented by: Sodium Chloride () 10 - 40 ml IV UD PRN PRN Reason: SALINE FLUSH Last Admin: 08/20/19 17:06 Dose: 10 ml Documented by: STROKE Vital Signs/Narrative: Vital Signs Pulse Resp Pulse Ox 08/22/19 08:52 119 H 08/22/19 07:03 75 18 92 Medical Necessity - Tobacco Use Smoking Status: Former smoker Assessment/Plan All Active Problems (Last Updated 07/24/19 @ 10:08 by Laurence Mas) Hypoxia (Acute) Pneumonia (Acute) Paroxysmal atrial fibrillation (Acute) Chest pain (Acute) Abnormal stress test (Acute) Nonsustained ventricular tachycardia (Acute) SVT (supraventricular tachycardia) (Acute) Premature ventricular contraction (Acute) Premature atrial contractions (Acute) 79 y/o admitted with a complaint of general malaise, cough and shortness of br eath 1. Sepsis due to community acquired pneumonia * wbc trended up to 18 today. He received only one dose therefore, this upward trend in wbc is concerning * For strep and Legionella were negative. * Will order a CT of the chest without contrast- CT chest sgwied right upper lobe pneumonia with complicated moderate right pleural effusion worrisome for empyema, and reactive right paratracheal lymphadenopathy * will broaden IV antibiotics to zosyn. * blood cultures show no growth; urine cultures show no grow * consult pulmonology * titrate oxygen to maintain sats>90% * continue breathing treatments * * . * 2. Acute hypoxic respiratory failure due to community acquired pneumonia * still requiring 4L of oxygen * CT chest findings as under 1. * pulmonology consulted management as under 1. * As under 1. * 3. TIFFANY on CKD stage III * Cr is down to 2.11. BUN is however up to 104 * renal USG showed mild bilateral renal cortical atrophy, and partially visualised right pleural effusion * FeUrea was 15.6%, siggestive of pre-renal disease * will continue with aggressive IVF hydration * urinalysis was unremarkable * consult nephrology o.a of worsening BUN, though Cr is trending down. * 4. History of A. fib: * On Eliquis. * propranolol resumed overnight o/a of tachycardia. HR went up to 119 * 2D echo ordered and pending. 5. Type 2 diabetes mellitus: Insulin sliding scale. Accu-Cheks AC at bedtime. On Lantus 55 units nightly. 6. Hypothyroidism: Synthroid 7. CAD: On aspirin and propranolol as well as statin. 8. Hypertension: * On amlodipine, propranolol and spironolactone as well as losartan hydr ochlorothiazide. * BP meds held on admission o/a of hypotension. * continue holding BP meds as BP is in low 100s systolic. DVT Prophylaxis: On Eliquis CODE STATUS: Full code Code Visit Inpatient E&M: 52708 Subs Hosp L3
[2019-08-22 10:06] LABS: Pathologist Review Reviewed
[2019-08-22 10:30] VITALS: BP 140/54; PULSE 85; RESP 18; TEMP 36.6; O2SAT 92
[2019-08-22] MEDS: Furosemide 40 MG/4 ML Vial IV (11:09)
[2019-08-22 11:26] LABS: Bedside Glucose 174 mg/dL (70-110)
--- NOTE | 2019-08-22 11:27 | CASEMGMT ---
Insurance review for [facility] facilities. [facility], [facility], [facility], KEN GALINDO.
[2019-08-22] MEDS: oxyCODONE 5 MG Tablet PO (11:45)
--- NOTE | 2019-08-22 13:14 | PCM.RX.CS ---
Consult Pharmacy has been consulted to manage selected antiobiotic: Vancomycin Type of Consult: New start Suspected Infection: Sepsis, Pneumonia Labs: Sodium 135 mmol/L (136-145) L 08/22/19 05:10 Potassium 4.8 mmol/L (3.5-5.1) 08/22/19 05:10 Chloride 105 mmol/L (98-107) 08/22/19 05:10 Carbon Dioxide 22.0 mmol/L (21.0-32.0) 08/22/19 05:10 Anion Gap 8 (5-15) 08/22/19 05:10 BUN 104 mg/dL (7-18) H* 08/22/19 05:10 Creatinine 2.11 mg/dL (0.70-1.30) H 08/22/19 05:10 Est GFR (MDRD) Af Amer 39 mL/min (>60) L 08/22/19 05:10 Est GFR (MDRD) Non-Af 32 mL/min (>60) L 08/22/19 05:10 BUN/Creatinine Ratio 49.3 RATIO (10-20) H 08/22/19 05:10 Glucose 182 mg/dL (74-106) H 08/22/19 05:10 Microbiology: Microbiology 08/20/19 11:20 Blood Culture (Wb) - Right Forearm Blood Culture - Preliminary No growth in 48 hours. 08/20/19 18:45 Urine, Clean Catch Urine Culture - Preliminary GPC Poss Enterococcus sp Gram positive organism 08/20/19 15:35 Mucosa - Nose Respiratory Panel (PCR) - Final 08/20/19 18:45 Urine, Clean Catch Streptococcus pneumoniae Antigen (M - Final 08/20/19 18:45 Urine, Clean Catch Legionella Antigen - Final 08/20/19 13:26 Mucosa - Nose Influenza Types A,B Direct FA (LILIBETH) - Final Weight used for dosin kg Estimated Creatinine Clearance: 39 ML/MIN Goal Trough: 15-20 mcg/mL Pharmacy Plan for Drug Dosing: Give loading dose of 2000mg IV x1, then continue with 1500mg IV q24h. Will check the trough level before the 3rd dose on 08/24/19. Pharmacy Service will continue to monitor and adjust dosing as required. Follow-Up Labs: Trough Vancomycin Labs to be done on [date and time ordered]: 08/24/19 12:30
--- NOTE | 2019-08-22 13:40 | CON.PCM_ITS ---
Reason for Consult Date of Consultation: 08/22/19 Reason for Consultation: Acute hypoxemic respiratory insufficiency/severe community-acquired pneumonia History of Present Illness: The patient is a 79-year-old male, with a history as outlined below, who presented to the emergency department on August 20 with complaints of generalized malaise, weakness, shortness of breath and cough, which have progressed over the course of 1 week. The patient stated that he was recently evaluated at the [place] approximately 1 week ago, where he received a pneumococcal vaccine. Over the ensuing week, the patient began to feel ill and did report frequent episodes of nausea and emesis with poor p.o. intake. Nevertheless, he denied having experienced any overt aspiration events. The patient does have a very remote smoking history, having quit completely in the . He does not currently consume alcohol on a regular basis. He has not traveled outside of the country recently. He denies any recent known sick contact exposure. He was not previously on treatment with antibiotics prior to his admission to the hospital. On presentation to the emergency department, the patient was noted to be afebrile, tachycardic and tachypneic. He was initially saturating 84% on room air. Laboratory evaluation revealed an elevated white blood cell count of 14,000. Chemistry profile was notable for acute on chronic kidney disease with a creatinine of 2.24 at presentation. Troponin and BNP were negative. Initial plain film chest x-ray revealed an infiltrate in the right lung base. The patient was subsequently placed on ceftriaxone and azithromycin and admitted to the progressive care unit for further management. Over the last several days, the patient's supplemental oxygen need has slowly increased. In addition, he did not seem to be responding symptomatically to the antibiotics. Therefore, on the morning of August 22, a CT chest without contrast was obtained which did reveal an airspace opacity in the right upper lobe along with a moderate sized right-sided pleural effusion, which appeared to be multiloculated and tracking up the lateral chest wall into the apical lung region. After reviewing the chest CT, recommendations were made to broaden the patient's antimicrobials to include vancomycin and Zosyn. Past Medical History Past Medical History (Chronic Problems): Chronic Problems (Last Updated 07/24/19 @ 10:08 by Laurence Mas) Hypothyroidism (Chronic) Essential hypertension (Chronic) Cardiac dysrhythmia (Chronic) Aortocoronary bypass status (Chronic ~06/20/07) CABG x5-DUEÑAS to LAD, bridge diagonal,SVG to lateral CX, SVG to post ventricular branch of the right bridge PDA 1@ [facility] 06/20/07 Bilateral carotid artery stenosis (Chronic) Hyperlipidemia (Chronic) Type 2 diabetes mellitus (Chronic) Presence of stent in coronary artery (Chronic ~04/16/04) PTCA/stent or prox RCA 04/16/04 @ [facility] 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) PTCA/stent or prox RCA 04/16/04 @ [facility]; CABG x5-DUEÑAS to LAD, bridge diagonal,SVG to lateral CX, SVG to post ventricular branch of the right bridge PDA 1@ [facility] 06/20/07 Medical History: Medical History (Last Updated 07/24/19 @ 10:08 by Laurence Mas) Hypothyroidism (Chronic) E03.9 Essential hypertension (Chronic) I10 Paroxysmal atrial fibrillation (Acute) I48.0 Nonsustained ventricular tachycardia (Acute) I47.2 SVT (supraventricular tachycardia) (Acute) I47.1 Premature ventricular contraction (Acute) I49.3 Premature atrial contractions (Acute) I49.1 Bilateral carotid artery stenosis (Chronic) I65.23 Hyperlipidemia (Chronic) E78.5 Type 2 diabetes mellitus (Chronic) E11.9 Presence of stent in coronary artery (Chronic) Onset Date: ~04/16/04 Z95.5 PTCA/stent or prox RCA 04/16/04 @ [facility] 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) I25.10 PTCA/stent or prox RCA 04/16/04 @ [facility]; CABG x5-DUEÑAS to LAD, bridge diagonal,SVG to lateral CX, SVG to post ventricular branch of the right bridge PDA 1@ [facility] 06/20/07 Bladder cancer C67.9 CAD S/P percutaneous coronary angioplasty I25.10, Z98.61 GERD (gastroesophageal reflux disease) K21.9 Peripheral vascular disease I73.9 History of left heart catheterization (LHC) Onset Date: ~10/31/18 Z98.890 LEFT MAIN: Mild calcification, Distal: Eccentric: 10-25 % Stenosis; LEFT ANTERIOR DECENDING ARTERY: PROX LAD: Severe calcification, Eccentric: 50 % Stenosis, DIAGONAL 1: Proximal - Filling from the DUEÑAS graft with no angiographically significant appearing disease distal to the graft anastomosis; CIRCUMFLEX ARTERY: PROX CIRC: Severe calcification, Eccentric: 90 % Stenosis; OM 1: Proximal - is subtotally occluded with the remainder of the vessel filling from the SVG graft with no angiograhically significant appearing disease distal the anastomosis; RIGHT CORONARY ARTERY: Severe calcification, MID RCA: is occluded RT PLV: Filling from the Sequential SVG graft to the RPDA and with no angiographically significant appearing disease distal to the graft anastomosis; RT PDA: Proximal - Filling from the SVG graft with no angiographically significant appearing disease distal to the graft anastomosis; GRAFTS: Right Posterior Lateral Vessel: Filling from the Sequential SVG graft to the RPDA and with no angiographically significant appearing disease distal to the graft anastomosis DUEÑAS graft to the 1st Diagonal is patent with the sequential portion to the LAD occluded Saphenous Vein graft to the 1st OM is patent; Saphenous Vein graft to the RPD A is patent with the sequential portion to the RPL patent; per cath 10/31/18 Allergies No Known Allergies Allergy (Verified 01/17/19 14:48) Home Medications: Ambulatory Orders Medication Instructions Recorded Amlodipine [Norvasc] 10 mg PO DAILY 08/06/14 Aspirin E.C. [Ecotrin] 81 mg PO DAILY@0800 08/06/14 Lovastatin [Mevacor] 40 mg PO QHS 08/06/14 Spironolactone [Aldactone] 25 mg PO DAILY 08/06/14 Valsartan/Hydrochlorothiazide 1 tab PO DAILY 08/06/14 [Diovan Hct 320-25 MG Tablet] levothyroxine 200 mcg tablet 200 mcg PO QDAY 01/05/18 potassium 99 mg tablet 99 mg PO DAILY 07/13/18 propranolol 60 mg tablet 60 mg PO DAILY #90 cap 12/04/18 apixaban 5 mg tablet 5 mg PO BID #60 tab 12/18/18 isosorbide mononitrate 30 mg 30 mg PO DAILY #90 tab 12/18/18 tablet,extended release 24 hr Cholecalciferol (Vitamin D3) 5,000 unit PO DAILY 08/20/19 [Vitamin D3] Insulin Aspart [Novolog Flexpen] 22 - 24 units SUBCUT TIDCM 08/20/19 Insulin Glargine,Hum.rec.anlog 55 unit SQ QHS 12/16/19 [Lantus Solostar] Melatonin 10 mg PO QHS 08/20/19 Vitamin B Complex [B Complex] 1 tab PO DAILY 08/20/19 Surgical History: Surgical History (Last Updated 07/24/19 @ 10:08 by Laurence Mas) Aortocoronary bypass status (Chronic) Onset Date: ~06/20/07 Z95.1 CABG x5-DUEÑAS to LAD, bridge diagonal,SVG to lateral CX, SVG to post ventricular branch of the right bridge PDA 1@ [facility] 06/20/07 History of nasal surgery Z98.890 History of tonsillectomy Z90.89 Presence of coronary angioplasty implant and graft Onset Date: ~04/16/04 Z95.5 PTCA/stent or prox RCA 04/16/04 @ [facility] History of vasectomy Z98.52 Surgical History: coronary bypass surgery, humerus repair; screws present Smoking Status: Former smoker Alcohol: None Drugs: None - *Family History Maternal Family History: Family History (Last Updated 01/17/19 @ 14:55 by Lynn Wilcox) Mother Hypertension Heart disease Brother Myocardial infarction, Onset Age: 50 Brother Diabetes Review of Systems Constitutional: Reports: Chills, Malaise, Weakness, Fatigue Eyes: Denies: Blurred vision, Double vision HEENT: Denies: Head Aches, Sinus Congestion, Sinus Drainage Cardiovascular: Denies: Chest Pain, Palpitations Respiratory: Reports: Cough, Shortness of Breath. Denies: Sputum production Gastrointestinal: Denies: Abdominal Pain, Nausea, Vomiting Genitourinary: Denies: Dysuria Musculoskeletal: Denies: Joint Pain, Joint Tenderness Skin: Denies: Rash, Wounds Neurological: Denies: Numbness, Tingling, Focal weakness Psychiatric: Denies: Anxiety, Depression, Homicidal Ideations, Suicidal Ideations Hematologic/ Lymphatic: Denies: Easy Bruising, Easy Bleeding Objective: The patient's most recent lab work, culture data and imaging studies have all been personally reviewed. - Physical Exam Vitals/I&O's: Vital Signs Temp Pulse Resp BP Pulse Ox 98 F 85 18 140/54 H 92 08/22/19 10:30 08/22/19 10:30 08/22/19 10:30 08/22/19 10:30 08/22/19 10:30 Oxygen Flow Rate (L/min) 4 Oxygen Delivery Method Nasal Cannula Weight: 264 lb 12.403 oz Body Mass Index (BMI) 34.0 Intake and Output for Last 24 Hours 08/20/19 08/21/19 08/22/19 23:59 23:59 23:59 Intake Total 2545 / 2665 3986.67 / 3986.67 2203.75 / 2203.75 Output Total 400 / 400 325 / 325 Balance 2545 / 2665 3586.67 / 3586.67 1878.75 / 1878.75 General: Alert, Cooperative, No apparent distress, - - Nontoxic in appearance HEENT: Atraumatic, PERRLA, Normocephalic Oral: No Gingival or Mucosal Lesions/ Ulcerations Neck: Supple, No Nodes, Trachea Midline Lungs: Diminished, Rales Cardiovascular: Normal S1, Normal S2, No murmurs, Irregular Rate Abdomen: Bowel Sounds Present, Soft, Non Tender Extremities: No clubbing, No cyanosis, No edema Skin: No breakdown Musculoskeletal: No Tenderness to Palpation of Joints or Extremities Lymphatic: No Cervical, Supraclavicular, or Inguinal Adenopathy Neurological: Cranial nerves II-XII grossly intact, Neuro grossly intact Psych/Mental Status: Alert and oriented to time, place, person, mood and affect Labs (Last 48 Hours) 08/20/19 08/20/19 08/20/19 11:20 13:30 16:51 WBC RBC Hgb Hct MCV MCH MCHC RDW Std Deviation RDW Coeff of Leon Plt Count MPV Immature Gran % (Auto) Neut % (Auto) Lymph % (Auto) Jackson % (Auto) Eos % (Auto) Baso % (Auto) Absolute Neuts (auto) Absolute Lymphs (auto) Nucleated RBC % Diff Path Review Reviewed Sodium Potassium Chloride Carbon Dioxide Anion Gap BUN Creatinine Estim Creat Clear Calc Est GFR (MDRD) Af Amer Est GFR (MDRD) Non-Af BUN/Creatinine Ratio Glucose Lactic Acid 1.5 Calcium B-Natriuretic Peptide Urine Color Urine Clarity Urine pH Ur Specific [place] Urine Protein Urine Glucose (UA) Urine Ketones Urine Occult Blood Urine Nitrite Urine Bilirubin Urine Urobilinogen Ur Leukocyte Esterase Urine RBC Urine WBC Ur Squamous Epith Cells Urine Bacteria Urine Mucus Urine Creatinine Urine Urea Nitrogen POC Glucose 274 H 08/20/19 08/21/19 08/21/19 21:35 05:20 05:20 WBC 17.2 H RBC 3.70 L Hgb 11.2 L Hct 33.9 L MCV 91.6 MCH 30.3 MCHC 33.0 RDW Std Deviation 42.1 RDW Coeff of Leon 12.7 Plt Count 400 MPV 10.3 Immature Gran % (Auto) 1.500 H Neut % (Auto) 81.1 H Lymph % (Auto) 6.2 L Jackson % (Auto) 11.1 H Eos % (Auto) 0.0 Baso % (Auto) 0.1 Absolute Neuts (auto) 14.0 H Absolute Lymphs (auto) 1.07 Nucleated RBC % 0 [address] Review Reviewed Sodium 132 L Potassium 4.9 Chloride 101 Carbon Dioxide 23.0 Anion Gap 8 BUN 95 H Creatinine 2.30 H Estim Creat Clear Calc 30.78 Est GFR (MDRD) Af Amer 36 L Est GFR (MDRD) Non-Af 29 L BUN/Creatinine Ratio 41.3 H Glucose 272 H Lactic Acid Calcium 7.9 L B-Natriuretic Peptide Urine Color Urine Clarity Urine pH Ur Specific [place] Urine Protein Urine Glucose (UA) Urine Ketones Urine Occult Blood Urine Nitrite Urine Bilirubin Urine Urobilinogen Ur Leukocyte Esterase Urine RBC Urine WBC Ur Squamous Epith Cells Urine Bacteria Urine Mucus Urine Creatinine Urine Urea Nitrogen POC Glucose 332 H 08/21/19 08/21/19 08/21/19 08:32 12:15 16:56 WBC RBC Hgb Hct MCV MCH MCHC RDW Std Deviation RDW Coeff of Leon Plt Count MPV Immature Gran % (Auto) Neut % (Auto) Lymph % (Auto) Jackson % (Auto) Eos % (Auto) Baso % (Auto) Absolute Neuts (auto) Absolute Lymphs (auto) Nucleated RBC % Diff Path Review Sodium Potassium Chloride Carbon Dioxide Anion Gap BUN Creatinine Estim Creat Clear Calc Est GFR (MDRD) Af Amer Est GFR (MDRD) Non-Af BUN/Creatinine Ratio Glucose Lactic Acid Calcium B-Natriuretic Peptide Urine Color Urine Clarity Urine pH Ur Specific [place] Urine Protein Urine Glucose (UA) Urine Ketones Urine Occult Blood Urine Nitrite Urine Bilirubin Urine Urobilinogen Ur Leukocyte Esterase Urine RBC Urine WBC Ur Squamous Epith Cells Urine Bacteria Urine Mucus Urine Creatinine Urine Urea Nitrogen POC Glucose 242 H 259 H 170 H 08/21/19 08/21/19 08/21/19 21:28 21:28 21:28 WBC RBC Hgb Hct MCV MCH MCHC RDW Std Deviation RDW Coeff of Leon Plt Count MPV Immature Gran % (Auto) Neut % (Auto) Lymph % (Auto) Jackson % (Auto) Eos % (Auto) Baso % (Auto) Absolute Neuts (auto) Absolute Lymphs (auto) Nucleated RBC % Diff Path Review Sodium Potassium Chloride Carbon Dioxide Anion Gap BUN Creatinine Estim Creat Clear Calc Est GFR (MDRD) Af Amer Est GFR (MDRD) Non-Af BUN/Creatinine Ratio Glucose Lactic Acid Calcium B-Natriuretic Peptide Urine Color Yellow Urine Clarity Sl. Cloudy Urine pH 5.0 Ur Specific [place] 1.020 Urine Protein Negative Urine Glucose (UA) Normal Urine Ketones 5 H Urine Occult Blood Negative Urine Nitrite Negative Urine Bilirubin Negative Urine Urobilinogen Normal Ur Leukocyte Esterase Negative Urine RBC 0 SEEN Urine WBC 0 SEEN Ur Squamous Epith Cells 0-5 SEEN Urine Bacteria 0 SEEN Urine Mucus 0 SEEN Urine Creatinine 154.00 Urine Urea Nitrogen 991 POC Glucose 08/21/19 08/22/19 08/22/19 21:57 05:10 05:10 WBC 18.0 H RBC 3.76 L Hgb 11.6 L Hct 34.8 L MCV 92.6 MCH 30.9 MCHC 33.3 RDW Std Deviation 42.8 RDW Coeff of Leon 12.8 Plt Count 474 H MPV 9.9 Immature Gran % (Auto) 2.000 H Neut % (Auto) 76.2 H Lymph % (Auto) 6.8 L Jackson % (Auto) 13.9 H Eos % (Auto) 0.8 Baso % (Auto) 0.3 Absolute Neuts (auto) 13.7 H Absolute Lymphs (auto) 1.23 Nucleated RBC % [address] Review Reviewed Sodium 135 L Potassium 4.8 Chloride 105 Carbon Dioxide 22.0 Anion Gap 8 BUN 104 H* Creatinine 2.11 H Estim Creat Clear Calc 33.55 Est GFR (MDRD) Af Amer 39 L Est GFR (MDRD) Non-Af 32 L BUN/Creatinine Ratio 49.3 H Glucose 182 H Lactic Acid Calcium 8.0 L B-Natriuretic Peptide Urine Color Urine Clarity Urine pH Ur Specific [place] Urine Protein Urine Glucose (UA) Urine Ketones Urine Occult Blood Urine Nitrite Urine Bilirubin Urine Urobilinogen Ur Leukocyte Esterase Urine RBC Urine WBC Ur Squamous Epith Cells Urine Bacteria Urine Mucus Urine Creatinine Urine Urea Nitrogen POC Glucose 114 H 08/22/19 08/22/19 05:10 11:14 WBC RBC Hgb Hct MCV MCH MCHC RDW Std Deviation RDW Coeff of Leon Plt Count MPV Immature Gran % (Auto) Neut % (Auto) Lymph % (Auto) Jackson % (Auto) Eos % (Auto) Baso % (Auto) Absolute Neuts (auto) Absolute Lymphs (auto) Nucleated RBC % Diff Path Review Sodium Potassium Chloride Carbon Dioxide Anion Gap BUN Creatinine Estim Creat Clear Calc Est GFR (MDRD) Af Amer Est GFR (MDRD) Non-Af BUN/Creatinine Ratio Glucose Lactic Acid Calcium B-Natriuretic Peptide 17.1 Urine Color Urine Clarity Urine pH Ur Specific [place] Urine Protein Urine Glucose (UA) Urine Ketones Urine Occult Blood Urine Nitrite Urine Bilirubin Urine Urobilinogen Ur Leukocyte Esterase Urine RBC Urine WBC Ur Squamous Epith Cells Urine Bacteria Urine Mucus Urine Creatinine Urine Urea Nitrogen POC Glucose 174 H Microbiology 08/20/19 11:20 Blood Culture (Wb) - Right Forearm Blood Culture - Preliminary No growth in 48 hours. 08/20/19 18:45 Urine, Clean Catch Urine Culture - Preliminary GPC Poss Enterococcus sp Gram positive organism 08/20/19 15:35 Mucosa - Nose Respiratory Panel (PCR) - Final 08/20/19 18:45 Urine, Clean Catch Streptococcus pneumoniae Antigen (M - Final 08/20/19 18:45 Urine, Clean Catch Legionella Antigen - Final 08/20/19 13:26 Mucosa - Nose Influenza Types A,B Direct FA (LILIBETH) - Final Clinical Impression(s) from Imaging Studies Chest X-Ray 08/20/19 11:15 IMPRESSION: Pleural parenchymal changes at the right lung base. Follow-up is recommended. Electronically Signed: Guillermo Shirley, at 11:40 EST , Service support , Renal Ultrasound 08/21/19 15:00 IMPRESSION: Partially visualized right pleural effusion. Mild bilateral renal cortical atrophy. Electronically Signed: Jeremias Kwan, at 20:22 EST Tel , Service support , Chest CT 08/22/19 08:52 IMPRESSION: Right upper lobe pneumonia with complicated moderate right pleural effusion worrisome for empyema and reactive right paratracheal lymphadenopathy. Follow-up is recommended to exclude bronchogenic carcinoma. Electronically Signed: Alton Cordova MD at 9:35 EST Tel , Service support , Current Medications Acetaminophen (Tylenol) 650 mg PO Q6H PRN PRN PRN Reason: Pain or Fever Last Admin: 08/22/19 09:53 Dose: 650 mg Documented by: Albuterol/Ipratropium (Duoneb) 3 ml INHALATION Q4H.RT [facility] Last Admin: 08/22/19 11:20 Dose: Not Given Documented by: Aspirin (Ecotrin) 81 mg PO DAILY@0800 [facility] Last Admin: 08/22/19 08:08 Dose: 81 mg Documented by: Atorvastatin Calcium (Lipitor) 20 mg PO QHS [facility] Last Admin: 08/21/19 21:53 Dose: 20 mg Documented by: Cholecalciferol (Vitamin D) 5,000 unit PO DAILY [facility] Last Admin: 08/22/19 08:09 Dose: 5,000 unit Documented by: Glucagon () 1 mg IM .X1 PRN PRN Reason: Hypoglycemia Guaifenesin (Mucinex) 1,200 mg PO BID [facility] Last Admin: 08/22/19 08:09 Dose: 1,200 mg Documented by: Sodium Chloride () 250 mls @ 15 mls/hr IV .[id number] PRN PRN Reason: Saline Flush Dextrose (Dextrose 10%-Water) 250 mls @ 999 mls/hr IV X1 PRN; Protocol PRN Reason: HYPOGLYCEMIA Piperacillin Sod/Tazobactam (Sod 3.375 gm/ Sodium Chloride) 50 mls @ 12.5 mls/hr IV Q8 [facility] Last Admin: 08/22/19 12:22 Dose: 12.5 mls/hr Documented by: Sodium Chloride () 1,000 mls @ 125 mls/hr IV .Q8H [facility] Stop: 08/23/19 10:19 Last Infusion: 08/22/19 12:58 Dose: 0 mls/hr Documented by: Vancomycin IV Pharmacy to Dose (1 ea/ Sodium Chloride) 500 mls @ 250 mls/hr IV X1 PRN; Protocol PRN Reason: Rx to Dose Vancomycin HCl 1,500 mg/ (Sodium Chloride) 530 mls @ 250 mls/hr IV Q24H [facility] Insulin Glargine (Lantus (Bk)) 55 units SC QHS [facility] Last Admin: 08/21/19 22:02 Dose: 55 u Documented by: Insulin Human Lispro (Humalog Kwikpen ([facility])) 22 unit SC TIDCM [facility] Last Admin: 08/22/19 13:10 Dose: Not Given Documented by: Insulin Human Lispro (Humalog Kwikpen ([facility])) 0 unit SC ACHS [facility]; Protocol Last Admin: 08/22/19 12:58 Dose: Not Given Documented by: Isosorbide Mononitrate (Imdur) 30 mg PO DAILY [facility] Last Admin: 08/22/19 08:09 Dose: 30 mg Documented by: Levothyroxine Sodium (Synthroid) 200 mcg PO DAILY@0600 [facility] Last Admin: 08/22/19 04:50 Dose: 200 mcg Documented by: Melatonin (Melatonin) 10 mg PO QHS [facility] Last Admin: 08/21/19 21:53 Dose: 10 mg Documented by: Multivitamins (Allbee W/C Caplet, Thera B Comp/C) [facility] Admin: 08/22/19 08:08 Dose: 1 capsule Documented by: Nutritional Formula (Lactose Free) (Glucerna Shake) 120 ml PO 4X/DAY [facility] Last Admin: 08/22/19 08:09 Dose: 120 ml Documented by: Ondansetron HCl (Zofran) 4 mg IV Q8H PRN PRN PRN Reason: NAUSEA/VOMITING Oxycodone HCl (Oxyir) 5 mg PO Q6H PRN PRN PRN Reason: Pain Score 6-10/10 Last Admin: 08/22/19 11:45 Dose: 5 mg Documented by: Propranolol HCl (Inderal La) 60 mg PO DAILY [facility] Last Admin: 08/22/19 07:38 Dose: 60 mg Documented by: Sodium Chloride () 10 - 40 ml IV UD PRN PRN Reason: SALINE FLUSH Last Admin: 08/20/19 17:06 Dose: 10 ml Documented by: Assessment/Plan All Active Problems (Last Updated 07/24/19 @ 10:08 by Laurence Mas) Hypoxia (Acute) Pneumonia (Acute) Paroxysmal atrial fibrillation (Acute) Chest pain (Acute) Abnormal stress test (Acute) Nonsustained ventricular tachycardia (Acute) SVT (supraventricular tachycardia) (Acute) Premature ventricular contraction (Acute) Premature atrial contractions (Acute) RECOMMENDATIONS: 1. Broaden antimicrobials to include vancomycin and Zosyn. 2. Hold Eliquis. 3. Plan for ultrasound-guided thoracentesis, once patient has been off of Eliquis for at least 24 hours. 4. The patient may require thoracic surgery intervention, given concerns for complicated parapneumonic effusion versus empyema. 5. Wean supplemental oxygen to maintain saturations at or above 90%. IMPRESSIONS: 1. Acute hypoxemic respiratory insufficiency secondary to underlying pneumonia and multiloculated pleural effusion The patient initially presented with findings concerning for community-acquired pneumonia. He was initially placed on azithromycin and ceftriaxone, but failed to respond subjectively to therapy. Subsequent CT chest without contrast did reveal a right upper lobe airspace opacity with associated right-sided multiloculated pleural effusion. Recommendations were made to broaden the patient's antimicrobials to vancomycin and Zosyn, empirically. I do strongly recommend that the patient undergo an ultrasound-guided thoracentesis. However, the patient is on Eliquis and did receive a dose this morning. Therefore, systemic anticoagulation has been discontinued. The patient will need to be off of Eliquis for at least 24 hours prior to proceeding with thoracentesis. I am concerned that the patient may have an underlying complicated parapneumonic effusion versus that of an empyema. This may require eventual surgical intervention. 2. Sepsis secondary to community-acquired pneumonia Broaden antibiotics to include vancomycin and Zosyn. The patient is currently hemodynamically stable. Infectious work-up is pending. The patient will require ultrasound-guided thoracentesis once he has been off of Eliquis for at least 24 hours. 3. Acute on chronic kidney disease Likely prerenal in etiology. Continue gentle IV fluid hydration as tolerated. 4. History of atrial fibrillation/diabetes mellitus/hypothyroidism/coronary artery disease/hypertension Complicates care, management, recovery and prognosis. Continue home medications as tolerated, with the exception of Eliquis, which is currently on hold. This note was generated with [employer] software. It may contain incorrect words, spelling, and punctuation that were not noted in checking the note before signing. Code Visit Inpatient E&M: 39942 Init Hosp L3
--- NOTE | 2019-08-22 14:16 | PCA ---
Cancelled apt for 08/31 at 1015 with Palak Cuellar due to patient transfer to another hospital.
--- NOTE | 2019-08-22 15:33 | PCM.DC.SUM ---
Discharge Date and Diagnosis Date of Admission: 08/20/19 Date of Discharge: 08/22/19 - Primary Discharge Diagnosis community acquired pneumonia acute respiratory failure due to community acquired pneumonia and pleural effusion right loculated pleural effusion and empyema acute on chronic CKD 3 - Secondary Discharge Diagnosis Chronic Problems (Last Updated 07/24/19 @ 10:08 by Laurence Mas) Hypothyroidism (Chronic) Essential hypertension (Chronic) Cardiac dysrhythmia (Chronic) Aortocoronary bypass status (Chronic ~06/20/07) CABG x5-DUEÑAS to LAD, bridge diagonal,SVG to lateral CX, SVG to post ventricular branch of the right bridge PDA 1@ [place] 06/20/07 Bilateral carotid artery stenosis (Chronic) Hyperlipidemia (Chronic) Type 2 diabetes mellitus (Chronic) Presence of stent in coronary artery (Chronic ~04/16/04) PTCA/stent or prox RCA 04/16/04 @ [facility] Atherosclerotic heart disease of [place] coronary artery without angina pectoris (Chronic) PTCA/stent or prox RCA 04/16/04 @ [facility]; CABG x5-DUEÑAS to LAD, bridge diagonal,SVG to lateral CX, SVG to post ventricular branch of the right bridge PDA 1@ [place] 06/20/07 Hospital Course and Treatment Imaging Results: 08/22/19 08:52 Chest without Contrast [CT] Urgent Diagnostic Data Chest X-Ray 08/20/19 11:15 IMPRESSION: Pleural parenchymal changes at the right lung base. Follow-up is recommended. Electronically Signed: Guillermo Shirley, at 11:40 EST , Service support , Renal Ultrasound 08/21/19 15:00 IMPRESSION: Partially visualized right pleural effusion. Mild bilateral renal cortical atrophy. Electronically Signed: Jeremias Kwan, at 20:22 EST Tel , Service support , Chest CT 08/22/19 08:52 IMPRESSION: Right upper lobe pneumonia with complicated moderate right pleural effusion worrisome for empyema and reactive right paratracheal lymphadenopathy. Follow-up is recommended to exclude bronchogenic carcinoma. Electronically Signed: Alton Cordova MD at 9:35 EST Tel , Service support , Operations: None Procedures: None Summary of Care Provided: The patient is a 79 year old M with an extensive past medical history as listed. He was admitted through the ED on 08/20/2019 with a complaint of general malaise, shortness of breath and cough. Patient states symptoms have been going on for a few days that he had general weakness and could not really eat. He also had a cough which is occasionally productive though he could not tell the color of the sputum. He had some mild exertional shortness of breath but denied any palpitations, dizziness, fever or chills, abdominal pain, diarrhea vomiting. Review of symptoms otherwise negative. In the ED, vitals were significant for respiratory rate of 24 with pulse rate of 75 and blood pressure of 101/60 with temperature of 97.3. Labs showed sodium of 131 with creatinine of 2.24 initial troponin was negative. CBC showed white cell count of 14.2 hemoglobin of 12.3 with platelets of 437. Lactic acid was 1.5. He was saturating at 84% on admission. Chest x-ray showed pleural parenchymal changes of the right lung base. He has been admitted to be managed for sepsis and acute hypoxic respiratory failure due to community-acquired pneumonia. He was started on IV ceftriaxone and azithromycin. Patient was also managed for TIFFANY on CKD stage III. He was started on breathing treatments and oxygen to maintain saturation above 90%. Initial white cell count was 14.2 and this trended up to 17.2 the next day. This was thought to be due to 1 dose of prednisone that patient had received. However patient's shortness of breath worsened and he required increasing amounts of oxygen up to a peak of 5 L of oxygen. White cell count also trended up to 18. Decision was made to get a CT of the chest on 08/22/2019 which showed a right upper lobe pneumonia with complicated moderate right pleural effusion worrisome for empyema and reactive right paratracheal lymphadenopathy. Antibiotics were broadened to vancomycin and Zosyn. Of note, patient was also hydrated with IV fluids on account of elevated creatinine. Creatinine was 2.24 on admission with a baseline of around 1.3. Creatinine trended down to 2.11 on day of discharge. Pulmonology was consulted on account of finding of loculated empyema and pleural effusion. Since patient was on Eliquis, he could not have a thoracentesis on the day of admission. Per discussion with pulmonology, if effusion was indeed loculated, patient would need evaluation by thoracic surgery. Decision was therefore made to transfer patient to [facility] for evaluation by thoracic surgery. He was transferred to [facility] on 08/22/2019 and was accepted to the care of Dr Tracy (hospitalist). Patient seen and examined prior to discharge. He said he did not think he was getting any better and actually felt worse. Shortness of breath persisted and he had a lot of coughing during the night. Review of systems otherwise negative. Labs and vitals reviewed. Home medication reviewed and reconciled. o/e: Vital Signs Height 6 ft 2 in Weight: 264 lb 12.403 oz Weight in Pounds 264.8 lbs Pulse Ox 92 Temperature 98 F Pulse Rate 85 Respiratory Rate 18 Blood Pressure 140/54 Blood Pressure Position Sitting General: Alert, Oriented x3, Cooperative, No apparent distress HEENT: Atraumatic, PERRLA, EOMI, Normocephalic Oral: Dry Mucosa Neck: Supple, No JVD, Negative Carotid Bruits Lungs: Tachypneic, - - decreased breath sounds bibasally, mainly in right lower lung rae. On 4L of oxygen. Cardiovascular: tachycardic, Regular Rhythm, Normal S1, Normal S2, No murmurs Abdomen: Bowel Sounds Present, Soft, Non Tender, Non-Distended, No Hepato-splenomegaly Extremities: No clubbing, No cyanosis, No edema, Capillary Refill Less than 3 Seconds Skin: No rashes, No breakdown Musculoskeletal: No Tenderness to Palpation of Joints or Extremities Lymphatic: No Cervical, Supraclavicular, or Inguinal Adenopathy Neurological: Cranial nerves II-XII grossly intact, Neuro grossly intact, Motor Exam 5/5 strength throughout Psych/Mental Status: Normal Affect, Appropriate, Alert and oriented to time, place, person, mood and affect Plan as above. - Physical Exam Vitals/I&O's: Vital Signs Temp Pulse Resp BP Pulse Ox 98 F 85 18 140/54 H 92 08/22/19 10:30 08/22/19 10:30 08/22/19 10:30 08/22/19 10:30 08/22/19 10:30 Oxygen Flow Rate (L/min) 4 Oxygen Delivery Method Nasal Cannula Weight: 264 lb 12.403 oz Body Mass Index (BMI) 34.0 Intake and Output for Last 24 Hours 08/20/19 08/21/19 08/22/19 23:59 23:59 23:59 Intake Total 2545 / 2665 3986.67 / 3986.67 2683.75 / 2683.75 Output Total 400 / 400 725 / 725 Balance 2545 / 2665 3586.67 / 3586.67 1958.75 / 1958.75 Microbiology Past 72 Hours 08/20/19 11:20 Blood Culture (Wb) - Right Forearm Blood Culture - Preliminary No growth in 48 hours. 08/20/19 18:45 Urine, Clean Catch Urine Culture - Preliminary GPC Poss Enterococcus sp Gram positive organism 08/20/19 15:35 Mucosa - Nose Respiratory Panel (PCR) - Final 08/20/19 18:45 Urine, Clean Catch Streptococcus pneumoniae Antigen (M - Final 08/20/19 18:45 Urine, Clean Catch Legionella Antigen - Final 08/20/19 13:26 Mucosa - Nose Influenza Types A,B Direct FA (LILIBETH) - Final Laboratory Results 08/21/19 12:15: POC Glucose 259 H 08/21/19 16:56: POC Glucose 170 H 08/21/19 21:28: Urine Creatinine 154.00 08/21/19 21:28: Urine Color Yellow, Urine Clarity Sl. Cloudy, Urine pH 5.0, Ur Specific [place] 1.020, Urine Protein Negative, Urine Glucose (UA) Normal, Urine Ketones 5 H, Urine Occult Blood Negative, Urine Nitrite Negative, Urine Bilirubin Negative, Urine Urobilinogen Normal, Ur Leukocyte Esterase Negative, Urine RBC 0 SEEN, Urine WBC 0 SEEN, Ur Squamous Epith Cells 0-5 SEEN, Urine Bacteria 0 SEEN, Urine Mucus 0 SEEN 08/21/19 21:28: Urine Urea Nitrogen 991 08/21/19 21:57: POC Glucose 114 H 08/22/19 05:10: WBC 18.0 H, RBC 3.76 L, Hgb 11.6 L, Hct 34.8 L, MCV 92.6, MCH 30.9, MCHC 33.3, RDW Std Deviation 42.8, RDW Coeff of Leon 12.8, Plt Count 474 H, MPV 9.9, Immature Gran % (Auto) 2.000 H, Neut % (Auto) 76.2 H, Lymph % (Auto) 6.8 L, [place] % (Auto) 13.9 H, Eos % (Auto) 0.8, Baso % (Auto) 0.3, Absolute Neuts (auto) 13.7 H, Absolute Lymphs (auto) 1.23, Nucleated RBC % 0, Diff Path Review Reviewed 08/22/19 05:10: Sodium 135 L, Potassium 4.8, Chloride 105, Carbon Dioxide 22.0, Anion Gap 8, BUN 104 H*, Creatinine 2.11 H, Estim Creat Clear Calc 33.55, Est GFR (MDRD) Af Amer 39 L, Est GFR (MDRD) Non-Af 32 L, BUN/Creatinine Ratio 49.3 H, Glucose 182 H, Calcium 8.0 L 08/22/19 05:10: B-Natriuretic Peptide 17.1 08/22/19 11:14: POC Glucose 174 H Discharge Diet: Low fat/ Low Cholesterol Discharge Activity: Return to Normal Activity Weight Bearing Status: Weight bearing as tolerated Home Medications: Medications to take at Discharge Amlodipine [Norvasc] 10 mg PO DAILY 08/06/14 Aspirin E.C. [Ecotrin] 81 mg PO DAILY@0800 08/06/14 Lovastatin [Mevacor] 40 mg PO QHS 08/06/14 Spironolactone [Aldactone] 25 mg PO DAILY 08/06/14 Valsartan/Hydrochlorothiazide [Diovan Hct 320-25 MG Tablet] 1 tab PO DAILY 08/06/14 levothyroxine 200 mcg tablet 200 mcg PO QDAY 01/05/18 potassium 99 mg tablet 99 mg PO DAILY 07/13/18 propranolol 60 mg tablet 60 mg PO DAILY #90 cap 12/04/18 apixaban 5 mg tablet 5 mg PO BID #60 tab 12/18/18 isosorbide mononitrate 30 mg tablet,extended release 24 hr 30 mg PO DAILY #90 tab 12/18/18 Cholecalciferol (Vitamin D3) [Vitamin D3] 5,000 unit PO DAILY 08/20/19 Insulin Aspart [Novolog Flexpen] 22 - 24 units SUBCUT TIDCM 08/20/19 Insulin Glargine,Hum.rec.anlog [Lantus Solostar] 55 unit SQ QHS 08/20/19 Melatonin 10 mg PO QHS 08/20/19 Vitamin B Complex [B Complex] 1 tab PO DAILY 08/20/19 Primary Care Physician: Palak Cuellar NP-C [Primary Care Provider] - Please follow up with your Primary Care Physician in: one week Please Follow Up With: Palak Cuellar NP-C Please Follow Up With: Isaac Mcwilliams MD Disposition: Acute care Hospital [facility] Minutes spent on discharge:: 45 Patient Condition:: Stable Medical Necessity - Tobacco Use Smoking Status: Former smoker Meaningful Use Info Meaningful Use Diagnoses (Choose all that apply): None applicable Code Visit Inpatient E&M: 14064 Disch Hosp
== END 2019-08-22 13:58 | disposition short-term general hospital (02) | DRG 871 ==
LOC: ED 12:26 → PCU 13:07
PROVIDERS: Emergency Medicine; Admitting Provider Student in an Organized Health Care Education/Training Program; Emergency Provider Emergency Medicine; Family Provider Nurse Practitioner; PCP Nurse Practitioner; Visit Provider Student in an Organized Health Care Education/Training Program
DX: A41.9 Sepsis, unspecified organism (principal); J18.9 Pneumonia, unspecified organism; J86.9 Pyothorax without fistula; J96.01 Acute respiratory failure with hypoxia; J91.8 Pleural effusion in other conditions classified elsewhere; N17.9 Acute kidney failure, unspecified; N18.3 Chronic kidney disease, stage 3 (moderate); E03.9 Hypothyroidism, unspecified; I25.10 Atherosclerotic heart disease of native coronary artery without angina pectoris; I12.9 Hypertensive chronic kidney disease with stage 1 through stage 4 chronic kidney disease, or unspecified chronic kidney disease; E11.22 Type 2 diabetes mellitus with diabetic chronic kidney disease; E78.5 Hyperlipidemia, unspecified; I65.23 Occlusion and stenosis of bilateral carotid arteries; Z95.1 Presence of aortocoronary bypass graft; Z79.01 Long term (current) use of anticoagulants; Z79.4 Long term (current) use of insulin; Z79.82 Long term (current) use of aspirin; I48.91 Unspecified atrial fibrillation; Z87.891 Personal history of nicotine dependence
CPT/HCPCS: 36415; 71045; 71250; 76770; 80048; 81001; 82570; 82962; 83605; 83880; 84484; 84540; 85025; 85610; 87040; 87086; 87088; 87449; 87633; 87804; 93005; 94640; 94762; 97162; 97166; 97530; 97802; 99251; 99285; J7030; J7040; J7050; A4216; G0463; J0696; J1940